=== PATIENT | female | born 1990 | race Caucasian/White ===

== ENCOUNTER 2018-10-08 18:19 | Observation (INO) ==
[2018-10-08] MEDS ORDERED: IOPAMIDOL 100 ML BOTTLE IV ONE (18:20)
--- NOTE | 2018-10-08 18:42 | Emergency Department Note ---
Neuro HPI - General Chief Complaint: Stroke Symptoms Stated Complaint: right sided weakness, headache, fall earlier Time Seen by Provider: 10/08/18 18:25 Source: patient Mode of arrival: ambulatory Limitations: no limitations - History of Present Illness HPI Narrative: This 28-year-old female comes emergency room describing tripping over her crutches which she is using because of her right ankle problem. Her right ankle is in an Aircast. She has had previous surgeries there. When she fell she fell backwards and ended up hitting the top left side of her head against a cupboard and the left lower side of her back. Over some period of time she developed right sided weakness particularly of her right upper extremity and right side of her face becoming droopier difficult to control including her eye as well as a decrease in the amount of sensation to these areas. She reports there was no loss of consciousness. She thinks this happened a couple of hours ago but she seems frustrated in trying to talk or explain. 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 She sees a Dr. Chuck Reza, neurologist, [facility]. REVIEW OF SYSTEMS: Her speech is difficult to understand and she is struggling to explain herself. Obtaining review of systems is not possible at this time. - Related Data Home Medications: Home Medications Medication Instructions Recorded Confirmed Gabapentin [Neurontin] 900 mg PO QIDP 12/24/15 03/04/17 Beclomethasone Dipropionate [Qvar 1 puff INH PRN PRN 03/08/16 03/04/17 40] Albuterol Sulfate [Ventolin] 2 puff INH Q4HP PRN 04/27/16 03/04/17 Previous Rx's Medication Instructions Recorded Cyclobenzaprine HCl 10 mg PO Q6HP PRN #10 tablet 08/16/16 Erythromycin Ophth Oint [Ilotycin 1 ribbon OU QID #1 oint.ophth 11/20/17 Ophth Oint] oxyCODONE HCL [Oxycodone HCl] 5 mg PO Q6H PRN #10 tab 11/20/17 Meclizine [Antivert] 25 mg PO TIDP PRN #20 tab 11/22/17 Metoclopramide [Reglan] 5 mg PO TIDAC PRN #15 tab 11/22/17 Ondansetron [Zofran ODT] 4 mg SL Q4-6HP PRN #14 tab 01/16/18 Sulfamethoxazole/Trimethoprim 1 tab PO BID #20 tab 01/16/18 [Bactrim Ds] Phenytoin Sod [Dilantin] 300 mg PO HS #30 cap 01/26/18 Clindamycin HCl [Cleocin] 300 mg PO TID #30 cap 06/06/18 HYDROcodone/APAP 5/325MG [[place] 1 tab PO Q4HP PRN #10 tab 06/06/18 5-325Mg] Ondansetron [Zofran ODT] 4 mg SL Q4-6HP PRN #10 tab 06/06/18 Gabapentin [Neurontin] 300 mg PO BID #21 cap 06/08/18 Ondansetron [Zofran ODT] 4 mg SL Q4-6HP PRN #10 tab 06/08/18 Allergies/Adverse Reactions: Allergies Allergy/AdvReac Type Severity Reaction Status Date / Time penicillin G [PENICILLIN G] Allergy Severe HIVES AND Verified 10/08/18 18:23 THROAT SWELLED UP phenobarbital [PHENOBARBITAL] Allergy Severe 'THROAT Verified 10/08/18 18:23 SWOLLEN' NSAIDS (Non-Steroidal Allergy Mild Vomiting Verified 10/08/18 18:23 Anti-Inflamma acetaminophen [From Tylenol] AdvReac Intermediate Vomiting Verified 10/08/18 18:23 ibuprofen AdvReac Unknown Verified 10/08/18 18:23 promethazine [From Phenergan] AdvReac Unknown Unknown Verified 10/08/18 18:23 ketorolac [From Toradol] AdvReac Nausea Verified 10/08/18 18:23 Past Medical History - Past Medical History [facility] Narrative: Medical History (Last Updated 10/08/18 @ 20:02 by Micky Payne DO) Acute CVA (cerebrovascular accident) (Resolved) Headache, hemiplegic migraine (Resolved) Chronic right hip pain (Chronic) Right ankle pain (Chronic) Seizure (Resolved) Abdominal pain (Resolved) Acute chest wall pain (Resolved) Atypical chest pain (Resolved) Cervical strain (Resolved) Chest pain (Resolved) Closed head injury (Resolved) Constipation (Resolved) Costalchondritis (Resolved) Dehydration (Resolved) Fall (Resolved) Flank pain (Resolved) Headache (Resolved) Lumbago (Resolved) Migraine (Resolved) Migraine headache with aura (Resolved) Nausea & vomiting (Resolved) Nausea, vomiting, and diarrhea (Resolved) Ovarian cyst rupture (Resolved) Paresthesias/numbness (Resolved) Sinusitis (Resolved) Strain of lumbar region (Resolved) Thoracic back pain (Resolved) Upper respiratory infection (Resolved) Urinary tract infection (Resolved) Vasovagal syncope (Resolved) Vertigo (Resolved) Vomiting (Resolved) Morbid obesity Medical history: Reports: arthritis, asthma, fibromyalgia, migraine, other (Right hip labral tear, chronic cervical pain, history of obesity, chronic back pain) Psychiatric history: Reports: anxiety, depression 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 She hardly moves. When spoken to she speaks very softly and quiet such that it is difficult to hear her. Upon repetition and request she sometimes elevates her voice on.) Head: atraumatic, normocephalic Eye: Present: normal appearance, PERRL, EOMI. Absent: scleral icterus, conjunctival injection ENT: normal oropharynx, mucous membranes moist, other (She does not open her mouth very far. Unable to see well her uvula or tonsillar area.) Neck: Present: trachea midline. Absent: lymphadenopathy, thyromegaly Chest: Present: symmetric chest wall rise Abdominal: Present: soft. Absent: distention, tenderness, guarding, rebound, rigidity, organomegaly, mass Extremities: Present: other (Lateral gel brace on the right ankle per). Absent: pedal edema, pretibial edema, calf tenderness Patient oriented to: Present: person Speech: Present: slurred, dysarthria Cranial nerves: EOM function (II, III, IV, ): Normal (But right eye is 4/5 closed virtually all the time. She seldom will look up.), facial sensation (V): Abnormal Right (Decreased on the right subjectively.), facial palsy (VII): Abnormal Right (Seems somewhat thick and decrease in movement.), tongue deviation (XII): Normal Motor strength - LUE: 3/5 Motor strength - RUE: 1/5 (On moving around her right upper extremity there is at times some tension in the shoulder and elbow muscles. Allowing her hand and forearm to fall towards her face initially causes fairly flaccid response then there was some tension and seemed to resist elbow extension briefly.) Motor strength - LLE: 3/5 Motor strength - RLE: 2/5 (Wiggles the right foot toes some but up and down a little bit [id number] with less strength than the right.) Sensory exam upper extremity: Abnormal Right: light touch (Subjectively decreased compared to the left.) Sensory exam lower extremity: Abnormal Right: light touch (Decreased compared to the left) Coma Scale Eye Opening: To Voice Coma Scale Motor Response: Obeys Commands Coma Scale Verbal Response: Oriented Coma Scale Total: 14 Psychiatric: Present: flat affect, serious, poor eye contact, other (Seems frustrated when she is trying to talk and having troubles remembering or finding her words per). Absent: agitated, anxious Skin: Present: warm, dry Course Vital Signs Pulse Rate 116 H 10/08/18 19:31 Respiratory Rate 17 10/08/18 19:31 Blood Pressure 137/103 10/08/18 19:31 Pulse Oximetry (%) 100 10/08/18 19:31 Pulse Rate 116 H 10/08/18 19:31 Respiratory Rate 21 10/08/18 19:41 Blood Pressure 140/124 10/08/18 19:41 Pulse Oximetry (%) 100 10/08/18 19:31 Neuro Symptoms/Deficit - MDM Narrative Medical decision making narrative: 28-year-old with an interesting history of TPA for CVA; hemiplegic migraines; unable to express herself well enough to tell even when onset today was of symptoms after a head injury.. CT scan of her head will be ordered emergently. Code stroke labs to be ordered as well. CT scan read as negative except for sinusitis. I spoke with stroke neurologist Dr. Haywood who agrees to videoscope in to help in evaluating this patient. 7:15 PM - patient's care passed off to Dr. Collin French who is coming on evening shift. Code stroke neurologist is yet to call back and be on the videoscope. - Lab Data Result diagrams: 10/08/18 18:39 10/08/18 18:39 Lab Results 10/08/18 10/08/18 Range/Units 18:39 18:39 POC Hct 36.0 (36.0-48.0) % POC PT 11.2 L (11.9-14.5) sec POC INR 0.9 (0.9-1.2) POC Sodium 141 (133-145) mmol/L POC Potassium 4.1 (3.3-5.1) mmol/L POC Chloride 104 (96-108) mmol/L POC Total CO2 26 (22-30) mmol/L POC BUN 12 (6-20) mg/dl POC Creatinine 1.0 (0.6-1.1) mg/dl POC Glucose 96 (70-105) mg/dL POC WB Ioniz Calcium 1.16 (1.16-1.32) mmol/L Disposition Pt seen by BUFFING MACHINE OPERATOR SEMIAUTOMATIC/PA only: No Disposition: Still a Patient Condition: Undetermined Referrals: Samia Dawkins ARNP [Primary Care Provider] -
[2018-10-08 18:51] LABS: POC Blood Urea Nitrogen 12 mg/dl (6-20); POC CO2 26 mmol/L (22-30); POC Calcium, Ionized 1.16 mmol/L (1.16-1.32); POC Chloride 104 mmol/L (96-108); POC Glucose, Random 96 mg/dL (70-105); POC Potassium 4.1 mmol/L (3.3-5.1); POC Sodium 141 mmol/L (133-145)
--- NOTE | 2018-10-08 19:06 | Cat Scan Report ---
History: Acute stroke symptoms with right-sided weakness, headaches and recent fall TECHNIQUE: The brain was imaged without contrast at 2.5 mm intervals. The radiation exposure was limited using dose reduction technology. FINDINGS: The brain appears normally developed. There is no evidence of an infarct, hemorrhage, edema or mass effect. The ventricles and cisterns are normal. There is near complete opacification of the right frontal sinus. Partial bilateral ethmoidectomies have been performed. There is moderate nodular mucosal thickening along the wall of the right ethmoid fossa. Minor mucosal thickening is seen in the floor the sphenoid sinuses. The left side ethmoids are relatively clear. The left frontal sinus is clear. The mastoids are also clear. Comparison with the prior exam done on 01/26/18 shows no change in appearance of the brain. The right frontal sinusitis and postsurgical changes in the ethmoids are new. IMPRESSION: Anatomically normal brain Severe right frontal and moderate right ethmoid sinusitis Dr. Payne was called with the results Interpreted and Authenticated by: Barry Brandt 10/08/18
[2018-10-08] MEDS ORDERED: diphenhydrAMINE 50 MG/ML VIAL IV ONE (19:39)
[2018-10-08] MEDS ORDERED: 0.9 % SODIUM CHLORIDE 1,000 ML IV ONE (19:39)
[2018-10-08] MEDS ORDERED: METOCLOPRAMIDE 10 MG/2 ML VIAL IV ONE (19:39)
[2018-10-08] MEDS ORDERED: DEXAMETHASONE 10 MG/ML VIAL IV ONE (19:39)
[2018-10-08 19:43] LABS: POC INR 0.9 (0.9-1.2); POC Pro Time 11.2 sec (11.9-14.5)
[2018-10-08] MEDS: HYDROmorphone 2 MG/ML VIAL IV PRN ×3 (19:45→23:30)
[2018-10-08 19:55] LABS: Basophils # (Auto) 0 K/mcL (0.0-0.3); Basophils % (Auto) 0.5 % (0.0-2.0); Eosinophils # (Auto) 0.6 K/mcL (0.0-0.7); Eosinophils % (Auto) 5.9 % (0.0-7.0); Granulocytes % (Auto) 60.1 % (38.0-78.0); Hematocrit 36.2 % (36.0-48.0); Hemoglobin 11.9 g/dL (12.0-15.0); Lymphocytes # (Auto) 2.6 K/mcL (1.5-4.8); Lymphocytes % (Auto) 27.1 % (15.5-49.0); Mean Cell Volume 80.6 fL (80.0-100.0); Mean Corpuscular HGB Conc 32.9 g/dL (31.0-36.0); Monocytes # (Auto) 0.6 K/mcL (0.1-0.9); Monocytes % (Auto) 6.4 % (1.0-12.0); Platelet Count 363 K/mcL (140-440); RBC 4.49 M/mcL (4.00-5.20); Red Cell Distribution Width 14.4 % (11.5-14.5); WBC 9.4 K/mcL (4.5-11.0)
[2018-10-08 20:19] LABS: ALT/SGPT 14 U/l (0-40); AST/SGOT 12 U/l (0-37); Albumin/Globulin Ratio 1.3 (1.0-2.3); Alkaline Phosphatase 97 U/L (39-117); Bilirubin,Total < 0.2 mg/dL (0.0-1.0); Blood Urea Nitrogen 12 mg/dl (6-20); Calcium 9.1 mg/dl (8.6-10.4); Carbon Dioxide 24 mmol/L (22-30); Chloride 105 mmol/L (96-108); Globulin 3.1 gm/dL (2.2-3.7); Glomerular Filtration Rate 76; Glucose 92 mg/dL (70-105); Potassium 4.3 mmol/L (3.3-5.1); Sodium 142 mmol/L (133-145)
[2018-10-08] MEDS ORDERED: cefTRIAXone 2 GM in DEXTROSE 5% IN WATER 50 ML IV ONE (20:50)
--- NOTE | 2018-10-08 20:52 | Emergency Department Note ---
Neuro HPI - General Chief Complaint: Stroke Symptoms Stated Complaint: right sided weakness, headache, fall earlier Time Seen by Provider: 10/08/18 18:25 Source: patient Mode of arrival: ambulatory Limitations: no limitations - History of Present Illness HPI Narrative: I received this patient in checkout from Dr. Payne. He had initiated stroke work-up and called tele-stroke Dr. Wilson Patient continues to have severe headache, right-sided facial droop and right arm weakness - Related Data Home Medications: Home Medications Medication Instructions Recorded Confirmed Gabapentin [Neurontin] 900 mg PO QIDP 12/24/15 03/04/17 Beclomethasone Dipropionate [Qvar 1 puff INH PRN PRN 03/08/16 03/04/17 40] Albuterol Sulfate [Ventolin] 2 puff INH Q4HP PRN 04/27/16 03/04/17 traMADol [Ultram] 50 mg PO DAILY PRN 10/09/18 10/09/18 Previous Rx's Medication Instructions Recorded Cyclobenzaprine HCl 10 mg PO Q6HP PRN #10 tablet 08/16/16 Meclizine [Antivert] 25 mg PO TIDP PRN #20 tab 11/22/17 Ondansetron [Zofran ODT] 4 mg SL Q4-6HP PRN #14 tab 01/16/18 Gabapentin [Neurontin] 300 mg PO BID #21 cap 06/08/18 Allergies/Adverse Reactions: Allergies Allergy/AdvReac Type Severity Reaction Status Date / Time penicillin G [PENICILLIN G] Allergy Severe HIVES AND Verified 10/08/18 18:23 THROAT SWELLED UP phenobarbital [PHENOBARBITAL] Allergy Severe 'THROAT Verified 10/08/18 18:23 SWOLLEN' acetaminophen [From Tylenol] AdvReac Mild Vomiting Verified 10/09/18 06:07 ketorolac [From Toradol] AdvReac Mild Nausea Verified 10/09/18 06:07 NSAIDS (Non-Steroidal AdvReac Mild Vomiting Verified 10/09/18 06:07 Anti-Inflamma promethazine [From Phenergan] AdvReac Mild Twitching Verified 10/09/18 06:07 ibuprofen AdvReac Unknown Verified 10/08/18 18:23 Past Medical History - Past Medical History Medical history: Reports: arthritis, asthma, fibromyalgia, migraine, other (Right hip labral tear, chronic cervical pain, history of obesity, chronic back pain) Psychiatric history: Reports: anxiety, depression 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 She hardly moves. When spoken to she speaks very softly and qu iet such that it is difficult to hear her. Upon repetition and request she sometimes elevates her voice on.) Course Vital Signs Pulse Rate 116 H 10/08/18 19:31 Respiratory Rate 17 10/08/18 19:31 Blood Pressure 137/103 10/08/18 19:31 Pulse Oximetry (%) 100 10/08/18 19:31 Temperature 96.5 F L 10/09/18 07:38 Pulse Rate 114 H 10/09/18 07:38 Respiratory Rate 18 10/09/18 07:38 Blood Pressure 114/70 10/09/18 07:38 Pulse Oximetry (%) 96 10/09/18 07:38 Neuro Symptoms/Deficit - Lab Data Lab results reviewed: Yes I reviewed the patient's lab results. Result diagrams: 10/09/18 01:35 10/09/18 01:35 Lab Results 10/08/18 10/08/18 10/08/18 Range/Units 00:35 00:35 18:39 WBC 9.4 (4.5-11.0) K/mcL RBC 4.49 (4.00-5.20) M/mcL Hgb 11.9 L (12.0-15.0) g/dL Hct 36.2 (36.0-48.0) % POC Hct (36.0-48.0) % MCV 80.6 (80.0-100.0) fL MCH 26.5 (26.0-34.0) pg MCHC 32.9 (31.0-36.0) g/dL RDW 14.4 (11.5-14.5) % Plt Count 363 (140-440) K/mcL MPV 8.0 (7.4-10.4) fL Gran % 60.1 (38.0-78.0) % Lymph % (Auto) 27.1 (15.5-49.0) % [place] % (Auto) 6.4 (1.0-12.0) % Eos % (Auto) 5.9 (0.0-7.0) % Baso % (Auto) 0.5 (0.0-2.0) % Gran # 5.7 (1.8-8.0) K/mcL Lymph # (Auto) 2.6 (1.5-4.8) K/mcL [place] # (Auto) 0.6 (0.1-0.9) K/mcL Eos # (Auto) 0.6 (0.0-0.7) K/mcL Baso # (Auto) 0 (0.0-0.3) K/mcL POC PT (11.9-14.5) sec POC INR (0.9-1.2) APTT (20-37) sec POC Sodium (133-145) mmol/L Sodium (133-145) mmol/L POC Potassium (3.3-5.1) mmol/L Potassium (3.3-5.1) mmol/L POC Chloride (96-108) mmol/L Chloride (96-108) mmol/L Carbon Dioxide (22-30) mmol/L POC Total CO2 (22-30) mmol/L Anion Gap (8-16) POC BUN (6-20) mg/dl BUN (6-20) mg/dl Creatinine (0.6-1.1) mg/dl POC Creatinine (0.6-1.1) mg/dl GFR Calculation Glucose (70-105) mg/dL POC Glucose (70-105) mg/dL Calcium (8.6-10.4) mg/dl POC WB Ioniz Calcium (1.16-1.32) mmol/L Total Bilirubin (0.0-1.0) mg/dL AST (0-37) U/l ALT (0-40) U/l Alkaline Phosphatase (39-117) U/L Troponin T (0-0.03) ng/ml Total Protein (5.9-8.4) gm/dL Albumin (3.2-5.2) gm/dL Globulin (2.2-3.7) gm/dL Albumin/Globulin Ratio (1.0-2.3) Urine Color Yellow Urine Appearance Clear Urine pH 7.0 (5.0-9.0) Ur Specific [place] 1.035 (1.000-1.035) Urine Protein Neg (NEG) mg/dL Urine Glucose (UA) Negative (NEG) mg/dL Urine Ketones Neg (NEG) mg/dL Urine Occult Blood Neg (<0.03) mg/dL Urine Nitrate Neg (NEG) Urine Bilirubin Neg (NEG) mg/dL Urine Urobilinogen Neg (NEG) mg/dL Ur Leukocyte Esterase Neg (NEG) /uL Urine RBC 2 H (0-1) /hpf Urine WBC 1 (0-4) /hpf Ur Squamous Epith Cells < 1 (0-4) /hpf Urine Bacteria 0 (0) /hpf Urine Mucus Few (0) /hpf Ur Culture Indicated? No Urine Opiates Screen Suspect positive A (NONDETECTED) Ur Opiates Confirm Not Reportable Ur Oxycodone Screen None detected (NONDETECTED) Urine Methadone Screen None detected (NONDETECTED) Ur Methadone Confirm Not Reportable Ur Barbiturates Screen None detected (NONDETECTED) Ur Barbiturate Confirm Not Reportable Ur Phencyclidine Scrn None detected (NONDETECTED) Urine PCP Confirm Not Reportable Ur Amphetamines Screen None detected (NONDETECTED) U Amphetamines Confirm Not Reportable U Benzodiazepines Scrn None detected (NONDETECTED) U Benzodiazepine Confm Not Reportable Urine Cocaine Screen None detected (NONDETECTED) Urine Cocaine Confirm Not Reportable U Cannabinoids Confirm Not Reportable U Marijuana (THC) Screen None detected (NONDETECTED) 10/08/18 10/08/18 10/08/18 Range/Units 18:39 18:39 18:39 WBC (4.5-11.0) K/mcL RBC (4.00-5.20) M/mcL Hgb (12.0-15.0) g/dL Hct (36.0-48.0) % POC Hct (36.0-48.0) % MCV (80.0-100.0) fL MCH (26.0-34.0) pg MCHC (31.0-36.0) g/dL RDW (11.5-14.5) % Plt Count (140-440) K/mcL MPV (7.4-10.4) fL Gran % (38.0-78.0) % Lymph % (Auto) (15.5-49.0) % [place] % (Auto) (1.0-12.0) % Eos % (Auto) (0.0-7.0) % Baso % (Auto) (0.0-2.0) % Gran # (1.8-8.0) K/mcL Lymph # (Auto) (1.5-4.8) K/mcL [place] # (Auto) (0.1-0.9) K/mcL Eos # (Auto) (0.0-0.7) K/mcL Baso # (Auto) (0.0-0.3) K/mcL POC PT 11.2 L (11.9-14.5) sec POC INR 0.9 (0.9-1.2) APTT 38 H (20-37) sec POC Sodium (133-145) mmol/L Sodium 142 (133-145) mmol/L POC Potassium (3.3-5.1) mmol/L Potassium 4.3 (3.3-5.1) mmol/L POC Chloride (96-108) mmol/L Chloride 105 (96-108) mmol/L Carbon Dioxide 24 (22-30) mmol/L POC Total CO2 (22-30) mmol/L Anion Gap 13.0 (8-16) POC BUN (6-20) mg/dl BUN 12 (6-20) mg/dl Creatinine 1.0 (0.6-1.1) mg/dl POC Creatinine (0.6-1.1) mg/dl GFR Calculation 76 Glucose 92 (70-105) mg/dL POC Glucose (70-105) mg/dL Calcium 9.1 (8.6-10.4) mg/dl POC WB Ioniz Calcium (1.16-1.32) mmol/L Total Bilirubin < 0.2 (0.0-1.0) mg/dL AST 12 (0-37) U/l ALT 14 (0-40) U/l Alkaline Phosphatase 97 (39-117) U/L Troponin T < 0.01 (0-0.03) ng/ml Total Protein 7.1 (5.9-8.4) gm/dL Albumin 4.0 (3.2-5.2) gm/dL Globulin 3.1 (2.2-3.7) gm/dL Albumin/Globulin Ratio 1.3 (1.0-2.3) Urine Color Urine Appearance Urine pH (5.0-9.0) Ur Specific [place] (1.000-1.035) Urine Protein (NEG) mg/dL Urine Glucose (UA) (NEG) mg/dL Urine Ketones (NEG) mg/dL Urine Occult Blood (<0.03) mg/dL Urine Nitrate (NEG) Urine Bilirubin (NEG) mg/dL Urine Urobilinogen (NEG) mg/dL Ur Leukocyte Esterase (NEG) /uL Urine RBC (0-1) /hpf Urine WBC (0-4) /hpf Ur Squamous Epith Cells (0-4) /hpf Urine Bacteria (0) /hpf Urine Mucus (0) /hpf Ur Culture Indicated? Urine Opiates Screen (NONDETECTED) Ur Opiates Confirm Ur Oxycodone Screen (NONDETECTED) Urine Methadone Screen (NONDETECTED) Ur Methadone Confirm Ur Barbiturates Screen (NONDETECTED) Ur Barbiturate Confirm Ur Phencyclidine Scrn (NONDETECTED) Urine PCP Confirm Ur Amphetamines Screen (NONDETECTED) U Amphetamines Confirm U Benzodiazepines Scrn (NONDETECTED) U Benzodiazepine Confm Urine Cocaine Screen (NONDETECTED) Urine Cocaine Confirm U Cannabinoids Confirm U Marijuana (THC) Screen (NONDETECTED) 10/08/18 Range/Units 18:39 WBC (4.5-11.0) K/mcL RBC (4.00-5.20) M/mcL Hgb (12.0-15.0) g/dL Hct (36.0-48.0) % POC Hct 36.0 (36.0-48.0) % MCV (80.0-100.0) fL MCH (26.0-34.0) pg MCHC (31.0-36.0) g/dL RDW (11.5-14.5) % Plt Count (140-440) K/mcL MPV (7.4-10.4) fL Gran % (38.0-78.0) % Lymph % (Auto) (15.5-49.0) % [place] % (Auto) (1.0-12.0) % Eos % (Auto) (0.0-7.0) % Baso % (Auto) (0.0-2.0) % Gran # (1.8-8.0) K/mcL Lymph # (Auto) (1.5-4.8) K/mcL [place] # (Auto) (0.1-0.9) K/mcL Eos # (Auto) (0.0-0.7) K/mcL Baso # (Auto) (0.0-0.3) K/mcL POC PT (11.9-14.5) sec POC INR (0.9-1.2) APTT (20-37) sec POC Sodium 141 (133-145) mmol/L Sodium (133-145) mmol/L POC Potassium 4.1 (3.3-5.1) mmol/L Potassium (3.3-5.1) mmol/L POC Chloride 104 (96-108) mmol/L Chloride (96-108) mmol/L Carbon Dioxide (22-30) mmol/L POC Total CO2 26 (22-30) mmol/L Anion Gap (8-16) POC BUN 12 (6-20) mg/dl BUN (6-20) mg/dl Creatinine (0.6-1.1) mg/dl POC Creatinine 1.0 (0.6-1.1) mg/dl GFR Calculation Glucose (70-105) mg/dL POC Glucose 96 (70-105) mg/dL Calcium (8.6-10.4) mg/dl POC WB Ioniz Calcium 1.16 (1.16-1.32) mmol/L Total Bilirubin (0.0-1.0) mg/dL AST (0-37) U/l ALT (0-40) U/l Alkaline Phosphatase (39-117) U/L Troponin T (0-0.03) ng/ml Total Protein (5.9-8.4) gm/dL Albumin (3.2-5.2) gm/dL Globulin (2.2-3.7) gm/dL Albumin/Globulin Ratio (1.0-2.3) Urine Color Urine Appearance Urine pH (5.0-9.0) Ur Specific [place] (1.000-1.035) Urine Protein (NEG) mg/dL Urine Glucose (UA) (NEG) mg/dL Urine Ketones (NEG) mg/dL Urine Occult Blood (<0.03) mg/dL Urine Nitrate (NEG) Urine Bilirubin (NEG) mg/dL Urine Urobilinogen (NEG) mg/dL Ur Leukocyte Esterase (NEG) /uL Urine RBC (0-1) /hpf Urine WBC (0-4) /hpf Ur Squamous Epith Cells (0-4) /hpf Urine Bacteria (0) /hpf Urine Mucus (0) /hpf Ur Culture Indicated? Urine Opiates Screen (NONDETECTED) Ur Opiates Confirm Ur Oxycodone Screen (NONDETECTED) Urine Methadone Screen (NONDETECTED) Ur Methadone Confirm Ur Barbiturates Screen (NONDETECTED) Ur Barbiturate Confirm Ur Phencyclidine Scrn (NONDETECTED) Urine PCP Confirm Ur Amphetamines Screen (NONDETECTED) U Amphetamines Confirm U Benzodiazepines Scrn (NONDETECTED) U Benzodiazepine Confm Urine Cocaine Screen (NONDETECTED) Urine Cocaine Confirm U Cannabinoids Confirm U Marijuana (THC) Screen (NONDETECTED) - Radiology Data Radiology results reviewed: Yes I reviewed the patient's radiology results. CT of the head along with CT angiogram of the head and neck do not show acute infarct. However they do note severe frontal and ethmoid sinusitis as well as stigmata of previous sinus surgeries Dr. Wilson also reviewed previous CTs MRI is available to him over at [facility]. He notes that she has a nebulous history of arteriovenous malformation. 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 Wilson, neurologist told stroke. Per review of previous documents she has an AV malformation that precludes giving further TPA. Further is not clear that she is actually having stroke symptoms. We will order CTA of head and neck. CT scan does note severe sinusitis which we will treat with antibiotics. Headache treated as well. CTA was unrevealing except for sinusitis. Concern at this point was conversion disorder versus CVA. Conversion disorder does seem to be more likely at this point given her psychiatric history and evidence so far -exam seems to support this. The headache seems to be from the sinusitis. Sitting the fluids and had not gotten up to urinate so we put a Bansal catheter in-she had over 700 cc in her bladder and was not complaining-Bansal was left in place At this point patient was clearly not moving her right arm well and we needed to sort out whether or not this is actual CVA versus conversion disorder. She needed further imaging including MRI echo and ultrasound of the carotids. I ordered the ultrasound and then discussed the case with Dr. Mcdonough, hospitalist. He agreed to accept the patient for further care and evaluation in the hospital. I have put in holding orders Disposition: Xfer As Outpt/Obs ([facility]) Condition: Fair
[2018-10-08] MEDS ORDERED: CLOPIDOGREL 75 MG TABLET PO ONE (23:18)
[2018-10-08] MEDS ORDERED: ATORVASTATIN 40 MG TABLET PO ONE (23:18)
[2018-10-08] MEDS ORDERED: ONDANSETRON 4 MG/2 ML VIAL IV PRN (23:22)
[2018-10-08] MEDS ORDERED: oxyCODONE/APAP 5/325MG TABLET PO PRN (23:22)
--- NOTE | 2018-10-08 23:34 | Internal Med History&Physical ---
Medical - H&P: [facility] Patient information: Note initiated : 10/08/18 at 11:34 pm Service Date, if different from initiated Date: [] Patient: Mattie Ortiz a 28 y/o F admitted on for right sided weakness, headache, fall earlier. Chief Complaint: [] Chief complaint: right-sided weakness History of present illness: Ms. Ortiz is a 28 year old F with a history of prior CVA symptoms and status post TPA who presents today to the ER after she fell backwards in her kitchen while using her crutches sustaining injury to the back of her head. She did not experience any bleeding or loss of consciousness however 2 hours following the injury patient noted sharp central headache along with increasing right-sided weakness and facial drooping and difficulty speaking. There is no apparent sei zures. She was brought into the ER for further evaluation Initial workup for CVA was unremarkable with negative CT head/CT angiogram head and neck. Stroke neurologist was consulted , as per neurologist TPA is contraindicated given a history of aneurysm and conversion disorder. Neurology recommended admission for further evaluation including MRI brain/echocardiogram for completeness of CVA workup. Patient was started on Plavix and statin in the ER. Subsequently hospitalist service was consulted for admission to facilitate further workup as above At the time of evaluation patient is alert oriented. She appears distraught from her symptoms. She denies thunderclap headache, chest palpitation, tearing neck pain or loss of consciousness. She further denies bowel or urinary incontinence. She also denies cough, fever, photophobia, neck stiffness. She recently sprained her right ankle and currently in a immobilizer Symptoms have minimally improved following an initial NIH score 11. Review of systems 10 point review systems was performed and is negative surveillance discussed above Medical - H&P: PMH Medical history: Acute CVA (cerebrovascular accident) (Resolved) Headache, hemiplegic migraine (Resolved) Chronic right hip pain (Chronic) Right ankle pain (Chronic) Seizure (Resolved) Abdominal pain (Resolved) Acute chest wall pain (Resolved) Atypical chest pain (Resolved) Cervical strain (Resolved) Chest pain (Resolved) Closed head injury (Resolved) Constipation (Resolved) Costalchondritis (Resolved) Dehydration (Resolved) Fall (Resolved) Flank pain (Resolved) Headache (Resolved) Lumbago (Resolved) Migraine (Resolved) Migraine headache with aura (Resolved) Nausea & vomiting (Resolved) Nausea, vomiting, and diarrhea (Resolved) Ovarian cyst rupture (Resolved) Paresthesias/numbness (Resolved) Sinusitis (Resolved) Strain of lumbar region (Resolved) Thoracic back pain (Resolved) Upper respiratory infection (Resolved) Urinary tract infection (Resolved) Vasovagal syncope (Resolved) Vertigo (Resolved) Vomiting (Resolved) Morbid obesity Medical history: Reports: arthritis, asthma, fibromyalgia, migraine, other (Right hip labral tear, chronic cervical pain, history of obesity, chronic back pain) Psychiatric history: Reports: anxiety, depression [employer]IST history: Reports: other (ovarian cyst) Surgical history ED: Reports: non-contributory - Social History smoking status: Never smoker Alcohol use: Reports: None Drug use: Reports: none Social history: lives With her parents Medical - H&P: Meds Home Medications Medication Instructions Recorded Confirmed Type Gabapentin [Neurontin] 900 mg PO QIDP 12/24/15 03/04/17 History Beclomethasone Dipropionate [Qvar 1 puff INH PRN PRN 03/08/16 03/04/17 History 40] Albuterol Sulfate [Ventolin] 2 puff INH Q4HP PRN 04/27/16 03/04/17 History Cyclobenzaprine HCl 10 mg PO Q6HP PRN #10 tablet 08/16/16 03/04/17 Rx Meclizine [Antivert] 25 mg PO TIDP PRN #20 tab 11/22/17 Rx Ondansetron [Zofran ODT] 4 mg SL Q4-6HP PRN #14 tab 01/16/18 Rx Gabapentin [Neurontin] 300 mg PO BID #21 cap 06/08/18 Rx traMADol [Ultram] 50 mg PO DAILY PRN 10/09/18 10/09/18 History Allergies Allergy/AdvReac Type Severity Reaction Status Date / Time penicillin G [PENICILLIN G] Allergy Severe HIVES AND Verified 10/08/18 18:23 THROAT SWELLED UP phenobarbital [PHENOBARBITAL] Allergy Severe 'THROAT Verified 10/08/18 18:23 SWOLLEN' acetaminophen [From Tylenol] AdvReac Mild Vomiting Verified 10/09/18 06:07 ketorolac [From Toradol] AdvReac Mild Nausea Verified 10/09/18 06:07 NSAIDS (Non-Steroidal AdvReac Mild Vomiting Verified 10/09/18 06:07 Anti-Inflamma promethazine [From Phenergan] AdvReac Mild Twitching Verified 10/09/18 06:07 ibuprofen AdvReac Unknown Verified 10/08/18 18:23 Medical - H&P: Exam - Constitutional Vitals: Pulse Resp BP Pulse Ox 113 H 26 H 137/106 97 10/08/18 23:21 10/08/18 23:21 10/08/18 23:21 10/08/18 23:21 General appearance: morbidly obese Exam: Alert and responding commands Head normocephalic Neck no lymphadenopathy Oral cavity dry Eye movements symmetrical, No ear discharge S1 and S2 regular rhythm-on monitoring analyst sinus Symmetric breath sounds bilaterally Abdomen soft nontender pendulous Lower extremity no cyanosis clubbing or joint swelling Skin no suspicious lesion Psych alert cooperative but anxious Neuro right-sided weakness Right-sided facial nerve involvement Mild expressive aphasia Medical - H&P: Reslt - Labs CBC & Chem 7: 10/09/18 01:35 10/09/18 01:35 Labs: Short CBC 10/08/18 Range/Units 18:39 WBC 9.4 (4.5-11.0) K/mcL Hgb 11.9 L (12.0-15.0) g/dL Hct 36.2 (36.0-48.0) % Plt Count 363 (140-440) K/mcL BMP 10/08/18 18:39 Sodium 142 Potassium 4.3 Chloride 105 Carbon Dioxide 24 BUN 12 Creatinine 1.0 Glucose 92 Calcium 9.1 Cardiac Enzymes 10/08/18 Range/Units 18:39 Troponin T < 0.01 (0-0.03) ng/ml Liver Function 10/08/18 Range/Units 18:39 Total Bilirubin < 0.2 (0.0-1.0) mg/dL AST 12 (0-37) U/l ALT 14 (0-40) U/l Alkaline Phosphatase 97 (39-117) U/L Albumin 4.0 (3.2-5.2) gm/dL Medical - H&P: A/P (1) Acute CVA (cerebrovascular accident) Current visit: No Status: Resolved * Acute right hemiparesis-tele stroke neurology -no indication for TPA. Recommend further workup including echocardiogram/MRI brain. High likelihood conversion reaction. Continue Plavix/statin. Await neurology note * History of neuropathy continue gabapentin * Degenerative joint disease with chronic pain continue cyclobenzaprine/tramadol * Prophylaxis heparin * Full code Plan * Observation telemetry admitted * Further workup as per stroke neurology * PT OT [facility]
[2018-10-09] MEDS ORDERED: 0.9 % SODIUM CHLORIDE 1,000 ML IV SCH ×2 (01:22)
[2018-10-09] MEDS ORDERED: ACETAMINOPHEN 1,000 MG/100 ML BOTTLE IV PRN (01:22)
[2018-10-09] MEDS ORDERED: ONDANSETRON 4 MG/2 ML VIAL IV PRN (01:22)
[2018-10-09] MEDS ORDERED: ACETAMINOPHEN 325 MG TABLET PO PRN (01:22)
[2018-10-09] MEDS ORDERED: PROMETHAZINE 25 MG/ML VIAL IV PRN (01:22)
[2018-10-09] MEDS ORDERED: HYDROmorphone 2 MG/ML VIAL ONE (01:58)
[2018-10-09] MEDS: HYDROmorphone 2 MG/ML VIAL IV PRN ×5 (02:05→14:04)
[2018-10-09 02:14] LABS: Hematocrit 36.1 % (36.0-48.0); Hemoglobin 11.9 g/dL (12.0-15.0); Mean Cell Volume 79.9 fL (80.0-100.0); Mean Corpuscular HGB Conc 33.1 g/dL (31.0-36.0); Mean Platelet Volume 7.9 fL (7.4-10.4); Platelet Count 379 K/mcL (140-440); RBC 4.51 M/mcL (4.00-5.20); Red Cell Distribution Width 14.2 % (11.5-14.5); WBC 9.1 K/mcL (4.5-11.0)
[2018-10-09 02:18] LABS: Appearance,Urine CLEAR; Bacteria,Urine 0 /hpf (0); Bilirubin,Urine NEG (NEG); Color,Urine YELLOW; Culture Indicated,Urine NO; Glucose,Urine (UA) NEGATIVE (NEG); Ketones,Urine NEG (NEG); Leukocyte Esterase,Urine NEG /uL (NEG); Mucus,Urine FEW /hpf (0); Nitrate,Urine NEG (NEG); Protein,Urine NEG (NEG); Specific Gravity,Urine 1.035 (1.000-1.035); Urine Blood NEG mg/dL (<0.03); Urine RBC 2 /hpf (0-1); Urine Squamous Epithelial Cell < 1 /hpf (0-4); Urine WBC 1 /hpf (0-4); Urobilinogen,Urine NEG (NEG)
[2018-10-09 02:23] LABS: Amphetamine Screen,Urine NONE DETECTED (NONDETECTED); Barbiturate Screen,Urine NONE DETECTED (NONDETECTED); Benzodiazepines Screen,Urine NONE DETECTED (NONDETECTED); Cannabinoid Screen,Urine NONE DETECTED (NONDETECTED); Cocaine Screen,Urine NONE DETECTED (NONDETECTED); Oxycodone, Urine Screen NONE DETECTED (NONDETECTED); Phencyclidine Screen,Urine NONE DETECTED (NONDETECTED)
[2018-10-09 02:42] LABS: ALT/SGPT 15 U/l (0-40); AST/SGOT 13 U/l (0-37); Albumin/Globulin Ratio 1.2 (1.0-2.3); Alkaline Phosphatase 95 U/L (39-117); Bilirubin,Direct < 0.2 mg/dL (0.0-0.3); Bilirubin,Total < 0.2 mg/dL (0.0-1.0); Blood Urea Nitrogen 12 mg/dl (6-20); Calcium 8.9 mg/dl (8.6-10.4); Carbon Dioxide 21 mmol/L (22-30); Chloride 104 mmol/L (96-108); Gamma Glutamyl Transpeptidase 41 U/L (5-36); Globulin 3.3 gm/dL (2.2-3.7); Glomerular Filtration Rate 99; Glucose 150 mg/dL (70-105); Lactate Dehydrogenase 138 U/L (94-250); Magnesium 1.8 mg/dL (1.6-2.5); Phosphorous 2.2 mg/dL (2.7-4.5); Potassium 4.3 mmol/L (3.3-5.1); Sodium 139 mmol/L (133-145); Triglycerides 32 mg/dl (<150); Uric Acid 5.7 mg/dL (2.5-8.0)
[2018-10-09 03:31] LABS: Opiate Screen,Urine SUSPECT POSITIVE (NONDETECTED)
[2018-10-09 04:19] LABS: Band Neutrophils % 1 % (0-10); Lymphocytes % 13 % (15-49); Microcytosis 1+ (NONE SEEN); Monocytes % (Manual) 1 % (1-12); Platelet Estimate NORMAL (NORMAL); RBC Morphology ABNORM (NORMAL); Segmented Neutrophils % 85 % (38-78)
[2018-10-09] MEDS: 0.9 % SODIUM CHLORIDE 10 ML SYRINGE IV SCH ×2 (06:33→14:22)
--- NOTE | 2018-10-09 07:56 | Cat Scan Report ---
History: Acute stroke symptoms, headache and facial weakness TECHNIQUE: Following injection of intravenous nonionic contrast the patient was imaged from the aortic arch to the top of the head. Neck and head were imaged separately. Sagittal, coronal and curved linear reformatted views were created. Radiation exposure was limited using dose reduction technology. FINDINGS: The aortic arch and great vessels arising from the aorta are normal in caliber. The carotid arteries are normal and symmetric. There is no plaque formation or dissection. The vertebral arteries are also normal and symmetric. There is no soft tissue neck mass. There are several reactive lymph nodes in both sides of the neck. Salivary glands appear normal. Head: The intracranial arterial circulation is normal. The [place] is normal. There is no evidence of vascular occlusion, thrombosis, dissection, aneurysm or vascular malformation. No enhancing lesion is present. Normal circulation seen both above and below the tentorium. The brain parenchyma appears normal. There is mucus retention cyst in the floor of the left maxillary sinus. Right frontal sinus is nearly completely opacified. Patient has had prior partial ethmoidectomies performed and there is moderate nodular mucosal thickening along the wall of the right ethmoid fossa. IMPRESSION: Normal arterial circulation in the brain and neck Sinusitis Interpreted and Authenticated by: Barry Brandt 10/09/18
--- NOTE | 2018-10-09 08:02 | Cat Scan Report ---
This report was dictated in conjunction with the neck CTA. Please see the neck CT report. IMPRESSION: normal exam Interpreted and Authenticated by: Barry Brandt 10/09/18
--- NOTE | 2018-10-09 08:22 | Ultrasound Report ---
CLINICAL INFORMATION: Right facial droop COMPARISON: Neck CT angiogram on 10/08/18 TECHNIQUE: Carotid arteries were imaged in sagittal and transverse planes using 5 mHz linear probe: Doppler, color, and 2D. FINDINGS: See worksheet by the technologist for velocities in PACS Please correlate with CTA CT Angiography or MRA MR Angiography if surgery is contemplated. The carotid arteries are normal in caliber. There is no plaque formation, dissection, stenosis or vascular anomaly. Normal flow velocities are present in the common, internal and external carotids. There is antegrade flow in both vertebral arteries. IMPRESSION: Normal exam Interpreted and Authenticated by: Barry Brandt 10/09/18
[2018-10-09] MEDS ORDERED: LORazepam 2 MG/ML VIAL IV ONE (08:48)
[2018-10-09] MEDS ORDERED: DOCUSATE SODIUM 100 MG CAPSULE PO SCH (09:00)
[2018-10-09] MEDS ORDERED: MULTIVIT,THER IRON,CA,FA & MIN 1 TABLET PO SCH (09:00)
[2018-10-09] MEDS ORDERED: THIAMINE 100 MG TABLET PO SCH (09:00)
--- NOTE | 2018-10-09 10:55 | Ultrasound Report ---
History: Flank pain The liver and spleen are normal in size and homogeneous. Only segments of the pancreas were visualized due to overlying bowel gas and patient body habitus. The visualized portions of the pancreas are normal. The gallbladder is normal with no stones or thickening of the wall. The common bile duct measures up to 4 mm. The right kidney measures 5.1 x 5.6 x 9.7 cm and is normal. There is no kidney stone or hydronephrosis. Left kidney measures 4.4 x 5.4 x 9.7 cm. The upper pole of the left kidney is somewhat difficult to visualize due to body habitus but the visualized portions of the left kidney are normal, without evidence of a stone, mass, hydronephrosis or inflammation. Segments of the aorta and inferior vena cava are visualized and appear normal. There are other segments which are obscured. No mass or abnormal fluid collection are identified. IMPRESSION: Normal exam Interpreted and Authenticated by: Barry Brandt 10/09/18
--- NOTE | 2018-10-09 11:06 | Magnetic Resonance Report ---
CLINICAL INFORMATION: Stroke symptoms with right-sided weakness and facial droop COMPARISON: Head CT on 10/08/18 TECHNIQUE:Sagittal T1 FLAIR, axial T1 FLAIR, T2 FLAIR propeller, T2 propeller, gradient, diffusion, ADC and coronal T2 weighted images were acquired. FINDINGS: The brain appears normal without evidence hemorrhage, infarct, mass, demyelinating disease or developmental anomaly. The ventricles and cisterns are normal. No abnormal extra-axial fluid collection is present. There is persistent severe right frontal sinusitis and milder right ethmoid sinusitis. Comparison with the head CT done yesterday shows no significant change. IMPRESSION: Normal brain Interpreted and Authenticated by: Barry Brandt 10/09/18
--- NOTE | 2018-10-09 11:12 | Internal Med Progress Note ---
Medical - PN: Subj Patient information: Note initiated : 10/09/18 at 11:10 am Service Date, if different from initiated Date: [] Patient: Mattie Ortiz a 28 y/o F admitted on 10/09/18 for right sided weakness, headache, fall earlier. Chief Complaint: [] Interval history: Ms. Ortiz is a 28 year old F with a history of prior CVA symptoms and status post TPA who presents today to the ER after she fell backwards in her kitchen while using her crutches sustaining injury to the back of her head. She did not experience any bleeding or loss of consciousness however 2 hours following the injury patient noted sharp central headache along with increasing right-sided weakness and facial drooping and difficulty speaking. There is no apparent seizures. She was brought into the ER for further evaluation Initial workup for CVA was unremarkable with negative CT head/CT angiogram head and neck. Stroke neurologist was consulted , as per neurologist TPA is contraindicated given a history of aneurysm and conversion disorder. Neurology recommended admission for further evaluation including MRI brain/echocardiogram for completeness of CVA workup. Patient was started on Plavix and statin in the ER. Subsequently hospitalist service was consulted for admission to facilitate further workup as above At the time of evaluation patient is alert oriented. She appears distraught from her symptoms. She denies thunderclap headache, chest palpitation, tearing neck pain or loss of consciousness. She further denies bowel or urinary incontinence. She also denies cough, fever, photophobia, neck stiffness. She recently sprained her right ankle and currently in a immobilizer Symptoms have minimally improved following an initial NIH score 11. 5/29- clinically improving right-sided weakness, dysarthria, facial droop and headache. MRI brain/echo pending. Continue statin/Plavix. Reviewed neurology note from telemetry stroke evaluation. Cardiology recommendation that he be a candidate due to similar event/conversion disorder in the past. Also AV malformation contraindications to TPA. - Constitutional Vitals: Vital Signs Temp Pulse Resp BP Pulse Ox 96.5 F L 114 H 18 114/70 96 10/09/18 07:38 10/09/18 08:00 10/09/18 08:00 10/09/18 07:38 10/09/18 08:00 Period Temp Pulse Resp BP Sys/Juarez Pulse Ox Last 24 Hr 96.5 F-98.6 F 110-122 13-36 108-193/42-180 90-100 Intake and Output 10/08/18 10/09/18 10/09/18 21:59 05:59 13:59 Intake Total 1050 1000 Output Total 1050 200 Balance 1050 -50 -200 Weight 271 lb 271 lb Intake & Output: Intake & Output 10/08/18 10/09/18 10/09/18 21:59 05:59 13:59 Intake Total 1050 1000 Output Total 1050 200 Balance 1050 -50 -200 Weight 271 lb 271 lb Intake: IV 1050 1000 Sodium Chloride 0.9% 1,000 ml @ 1000 1000 Wide Open IV BOLUS LEA Rx#: [id number] Rocephin 2 gm In Dextrose 5% in 50 Water 50 ml @ 100 mls/hr IV ONCE ONE Rx#:[id number] Output: Urine Catheter Amount 1050 200 Other: Urine Appearance Clear Clear Uretheral (Bansal) Clear Clear Urine Color Dark Yellow Bright Yellow Uretheral (Bansal) Dark Yellow Dark Yellow Urine Odor Normal General appearance: cooperative, no acute distress Exam: Alert and oriented Nonlabored breathing no dysarthria or a fascia Improved strength in upper and lower extremity with improved facial droop Medical - PN: Obj Da - Labs CBC & Chem 7: 10/09/18 01:35 10/09/18 01:35 Labs: Abnormal Lab Results 10/09/18 10/09/18 10/09/18 01:35 01:35 01:35 Hgb 11.9 L MCV 79.9 L Seg Neutrophils % 85 H Lymphocytes % 13 L RBC Morphology Abnorm A Microcytosis 1+ A ESR POC PT APTT Carbon Dioxide 21 L Glucose 150 H Phosphorus 2.2 L GGT 41 H C-Reactive Protein 2.7 H Urine RBC Urine Opiates Screen 10/09/18 10/08/18 10/08/18 01:35 18:39 18:39 Hgb 11.9 L MCV Seg Neutrophils % Lymphocytes % RBC Morphology Microcytosis ESR 42 H POC PT 11.2 L APTT 38 H Carbon Dioxide Glucose Phosphorus GGT C-Reactive Protein Urine RBC Urine Opiates Screen 10/08/18 10/08/18 00:35 00:35 Hgb MCV Seg Neutrophils % Lymphocytes % RBC Morphology Microcytosis ESR POC PT APTT Carbon Dioxide Glucose Phosphorus GGT C-Reactive Protein Urine RBC 2 H Urine Opiates Screen Suspect positive A Meds: Medications Docusate Sodium (Colace) 100 mg PO BID [facility] Hydromorphone HCl (Dilaudid) 0 mg IV Q4HP PRN PRN Reason: PAIN LEVEL > 6 Last Admin: 10/09/18 09:25 Dose: 0.25 mg Documented by: Sodium Chloride (Sodium Chloride 0.9%) 1,000 mls @ 50 mls/hr IV .Q20H [facility] Stop: 10/11/18 13:21 Last Admin: 10/09/18 03:06 Dose: 50 mls/hr Documented by: Sodium Chloride (Sodium Chloride 0.9%) 1,000 mls @ 0 mls/hr IV BOLUS [facility] Last Infusion: 10/09/18 03:07 Dose: Infused Documented by: Iron Carb/Multivit/[place]/Folic Acid (Multivitamin W/Minerals) 1 tab PO DAILY [facility] Ondansetron HCl (Zofran) 4 mg IV Q4-6HP PRN PRN Reason: Nausea And Vomiting Last Admin: 10/09/18 02:37 Dose: 4 mg Documented by: Promethazine HCl (Phenergan) 6.25 mg IV Q4-6HP PRN PRN Reason: Nausea And Vomiting Senna/Docusate Sodium (Senna Plus Tablet) 1 tab PO HS [facility] Sodium Chloride (Saline Flush) 10 ml IV Q8 [facility] Last Admin: 10/09/18 06:33 Dose: 10 ml Documented by: Thiamine HCl (Vitamin B1) 100 mg PO DAILY [facility] Medical - PN: A/P - Time Spent With Patient Total time spent is greater than 50% in coordination of care (as documented) at patient's floor/unit and/or counseling patient: 15 - 24 minutes (1) Acute CVA (cerebrovascular accident) Status: Resolved Assessment and plan: * Acute right hemiparesis- TPA contraindicated for neurology. Awaiting echo cardiogram/MRI brain. High likelihood conversion reaction. Continue Plavix/statin. * Headache much improved. * History of neuropathy continue gabapentin * Degenerative joint disease with chronic pain continue cyclobenzaprine/tramadol * Prophylaxis heparin * Full code Plan * Await echo/MRI * Further workup as per stroke neurology * PT OT ST eval Current Visit: No Medical - PN: Qual - Stroke Onset of Symptoms Date: 10/08/18 Onset of Symptoms Time: 17:00 Symptom Onset Unknown: Yes - VTE Deep Vein Thrombosis/Pulmonary Embolism Present on Admission: No
[2018-10-09] MEDS ORDERED: traMADol 50 MG TABLET PO PRN (13:26)
[2018-10-09] MEDS ORDERED: cefTRIAXone 1 GM VIAL IV SCH (13:30)
--- NOTE | 2018-10-09 14:58 | Discharge Summary ---
Medical - DS: Prov Patient information: Note initiated : 10/09/18 at 2:53 pm Service Date, if different from initiated Date: [] Patient: Mattie Ortiz a 28 y/o F admitted on 10/09/18 for right sided weakness, headache, fall earlier. Chief Complaint: [] Date of admission: 10/09/18 00:57 Discharge date: 10/09/18 Primary care physician: Samia Dawkins Consults: 10/08/18 Consult to Physician [CONS] Stat Comment: Consulting Provider: Eliecer Mcdonough Reason For Exam: Physician to Consult Medical - DS: Meds - Discharge Medications Active and Home Medications: Home Medications Gabapentin [Neurontin] 900 mg PO QID@,,,12/24/15 [History Confirmed 10/09/18 Last Taken Unknown] Beclomethasone Dipropionate [Qvar 40] 1 puff INH PRN PRN 03/08/16 [History Confirmed 03/04/17 Last Taken 10/08/18] Albuterol Sulfate [Ventolin] 2 puff INH Q4HP PRN 04/27/16 [History Confirmed 03/04/17 Last Taken 10/06/18] QUEtiapine FUMARATE [Seroquel] 50 - 150 mg PO HSP PRN 10/09/18 [History Confirmed 10/09/18 Last Taken Unknown] hydrOXYzine [Atarax] 25 mg PO HS 10/09/18 [History Confirmed 10/09/18 Last Taken Unknown] traMADol [Ultram] 50 - 100 mg PO DAILYP PRN 10/09/18 [History Confirmed 10/09/18 Last Taken Unknown] Medical - DS: Hosp Hospital course: Discharge diagnoses * Conversion reaction -rapid resolution of symptoms after initial symptoms mimicking acute right hemiparesis with facial droop- TPA contraindicated per neurology. MRI brain no acute process. Likely precipitated by his psy chosocial stressors in life * Frontal and ethmoidal sinusitis with headache- no leukocytosis. On antibiotic coverage. Patient will follow up with ENT Dr Hudson as outpatient on discharge. ENT prescribed seven-day course of antibiotics which patient will picker and packer from pharmacy. * History of neuropathy continue gabapentin * Degenerative joint disease with chronic pain continue cyclobenzaprine/tramadol Brief hospital course Ms. Ortiz is a 28 year old F with a history of prior CVA symptoms and status post TPA who presents today to the ER after she fell backwards in her kitchen while using her crutches sustaining injury to the back of her head. She did not experience any bleeding or loss of consciousness however 2 hours following the injury patient noted sharp central headache along with increasing right-sided weakness and facial drooping and difficulty speaking. There is no apparent seizures. She was brought into the ER for further evaluation Initial workup for CVA was unremarkable with negative CT head/CT angiogram head and neck. Stroke neurologist was consulted , as per neurologist TPA is contraindicated given a history of aneurysm and conversion disorder. Neurology recommended admission for further evaluation including MRI brain/echocardiogram for completeness of CVA workup. Patient was started on Plavix and statin in the ER. Subsequently hospitalist service was consulted for admission to facilitate further workup as above At the time of evaluation patient is alert oriented. She appears distraught from her symptoms. She denies thunderclap headache, chest palpitation, tearing neck pain or loss of consciousness. She further denies bowel or urinary incontinence. She also denies cough, fever, photophobia, neck stiffness. She recently sprained her right ankle and currently in a immobilizer Symptoms have minimally improved following an initial NIH score 11. 10/09- clinically improving right-sided weakness, dysarthria, facial droop and headache. MRI brain/echo pending. Continue statin/Plavix. Reviewed neurology note from telemetry stroke evaluation. She is not a candidate for TPA candidate due to similar event/conversion disorder in the past. Also AV malformation contraindications to TPA. 10/09- 2:50 PM- MRI no evidence of acute process. Patient was found to be texturing on phone using both hands by nursing staff. During my visit patient's symptoms have nearly resolved dramatically. Her facial droop has dramatically resolved. Patient discharged and advised to follow up with ENT and PICC prescription for sinusitis prescribed by ENT. Patient to follow-up with PCP. Discharge instructions as below Discharge diagnosis: . - Time Spent with Patient Total time spent providing and/or coordinating discharge services: Greater than 30 minutes Medical - DS: Exam - Constitutional Vitals: Vital Signs Temp Pulse Pulse Resp BP BP BP 10/09/18 14:21 99.3 F H 10/09/18 12:45 99.3 F H 115 H 16 10/09/18 08:00 114 H 18 10/09/18 07:38 96.5 F L 114 H 18 114/70 10/09/18 04:22 98 F 115 H 14 153/79 10/09/18 01:21 98.6 F 113 H 32 H 132/66 10/09/18 00:41 112 H 36 H 121/42 10/09/18 00:20 113 H 18 125/87 10/09/18 00:01 116 H 32 H 128/65 10/08/18 23:41 111 H 13 123/84 10/08/18 23:21 113 H 26 H 137/106 10/08/18 23:00 122 H 30 H 125/86 10/08/18 22:40 118 H 25 H 123/86 10/08/18 22:20 114 H 17 120/81 10/08/18 22:00 116 H 20 108/94 10/08/18 21:40 118 H 29 H 119/75 10/08/18 21:20 116 H 22 132/92 10/08/18 21:04 118 H 23 H 128/98 10/08/18 21:02 32 H 182/150 10/08/18 20:41 117 H 22 193/180 10/08/18 20:21 112 H 25 H 181/150 10/08/18 20:01 110 H 20 165/147 10/08/18 19:41 21 140/124 10/08/18 19:31 116 H 17 137/103 BP Pulse Ox 10/09/18 14:21 10/09/18 12:45 103/73 96 10/09/18 08:00 96 10/09/18 07:38 96 10/09/18 04:22 97 10/09/18 01:21 95 10/09/18 00:41 96 10/09/18 00:20 96 10/09/18 00:01 94 10/08/18 23:41 90 10/08/18 23:21 97 10/08/18 23:00 97 10/08/18 22:40 95 10/08/18 22:20 96 10/08/18 22:00 95 10/08/18 21:40 96 10/08/18 21:20 94 10/08/18 21:04 96 10/08/18 21:02 10/08/18 20:41 97 10/08/18 20:21 96 10/08/18 20:01 100 10/08/18 19:41 10/08/18 19:31 100 Intake and Output 10/09/18 10/09/18 10/09/18 05:59 13:59 21:59 Intake Total 1000 Output Total 1050 900 Balance -50 -900 Intake: IV 1000 Sodium Chloride 0.9% 1,000 ml @ 1000 Wide Open IV BOLUS LEA Rx#: [id number] Output: Urine Catheter Amount 1050 900 Other: Urine Appearance Clear Clear Uretheral (Bansal) Clear Clear Urine Color Dark Yellow Bright Yellow Uretheral (Bansal) Dark Yellow Dark Yellow Urine Odor Normal Weight 271 lb Medical - DS: Data Labs on day of discharge: Labs from last 24 hours 10/09/18 10/09/18 10/09/18 01:35 01:35 01:35 WBC 9.1 RBC 4.51 Hgb 11.9 L Hct 36.1 POC Hct MCV 79.9 L MCH 26.4 MCHC 33.1 RDW 14.2 Plt Count 379 MPV 7.9 Gran % Lymph % (Auto) [place] % (Auto) Eos % (Auto) Baso % (Auto) Gran # Lymph # (Auto) [place] # (Auto) Eos # (Auto) Baso # (Auto) Total Counted 100 Seg Neutrophils % 85 H Band Neutrophils % 1 Lymphocytes % 13 L Monocytes % (Manual) 1 Platelet Estimate Normal RBC Morphology Abnorm A Microcytosis 1+ A ESR POC PT POC INR APTT POC Sodium Sodium 139 POC Potassium Potassium 4.3 POC Chloride Chloride 104 Carbon Dioxide 21 L POC Total CO2 Anion Gap 14.0 POC BUN BUN 12 Creatinine 0.8 POC Creatinine GFR Calculation 99 Glucose 150 H POC Glucose Uric Acid 5.7 Calcium 8.9 POC WB Ioniz Calcium Phosphorus 2.2 L Magnesium 1.8 Total Bilirubin < 0.2 Direct Bilirubin < 0.2 GGT 41 H AST 13 ALT 15 Alkaline Phosphatase 95 Lactate Dehydrogenase 138 Troponin T C-Reactive Protein Total Protein 7.3 Albumin 4.0 Globulin 3.3 Albumin/Globulin Ratio 1.2 Triglycerides 32 Procalcitonin < 0.05 Urine Color Urine Appearance Urine pH Ur Specific [place] Urine Protein Urine Glucose (UA) Urine Ketones Urine Occult Blood Urine Nitrate Urine Bilirubin Urine Urobilinogen Ur Leukocyte Esterase Urine RBC Urine WBC Ur Squamous Epith Cells Urine Bacteria Urine Mucus Ur Culture Indicated? Urine Opiates Screen Ur Opiates Confirm Ur Oxycodone Screen Urine Methadone Screen Ur Methadone Confirm Ur Barbiturates Screen Ur Barbiturate Confirm Ur Phencyclidine Scrn Urine PCP Confirm Ur Amphetamines Screen U Amphetamines Confirm U Benzodiazepines Scrn U Benzodiazepine Confm Urine Cocaine Screen Urine Cocaine Confirm U Cannabinoids Confirm U Marijuana (THC) Screen 10/09/18 10/09/18 10/08/18 01:35 01:35 18:39 WBC RBC Hgb Hct POC Hct 36.0 MCV MCH MCHC RDW Plt Count MPV Gran % Lymph % (Auto) [place] % (Auto) Eos % (Auto) Baso % (Auto) Gran # Lymph # (Auto) [place] # (Auto) Eos # (Auto) Baso # (Auto) Total Counted Seg Neutrophils % Band Neutrophils % Lymphocytes % Monocytes % (Manual) Platelet Estimate RBC Morphology Microcytosis ESR 42 H POC PT POC INR APTT POC Sodium 141 Sodium POC Potassium 4.1 Potassium POC Chloride 104 Chloride Carbon Dioxide POC Total CO2 26 Anion Gap POC BUN 12 BUN Creatinine POC Creatinine 1.0 GFR Calculation Glucose POC Glucose 96 Uric Acid Calcium POC WB Ioniz Calcium 1.16 Phosphorus Magnesium Total Bilirubin Direct Bilirubin GGT AST ALT Alkaline Phosphatase Lactate Dehydrogenase Troponin T C-Reactive Protein 2.7 H Total Protein Albumin Globulin Albumin/Globulin Ratio Triglycerides Procalcitonin Urine Color Urine Appearance Urine pH Ur Specific [place] Urine Protein Urine Glucose (UA) Urine Ketones Urine Occult Blood Urine Nitrate Urine Bilirubin Urine Urobilinogen Ur Leukocyte Esterase Urine RBC Urine WBC Ur Squamous Epith Cells Urine Bacteria Urine Mucus Ur Culture Indicated? Urine Opiates Screen Ur Opiates Confirm Ur Oxycodone Screen Urine Methadone Screen Ur Methadone Confirm Ur Barbiturates Screen Ur Barbiturate Confirm Ur Phencyclidine Scrn Urine PCP Confirm Ur Amphetamines Screen U Amphetamines Confirm U Benzodiazepines Scrn U Benzodiazepine Confm Urine Cocaine Screen Urine Cocaine Confirm U Cannabinoids Confirm U Marijuana (THC) Screen 10/08/18 10/08/18 10/08/18 18:39 18:39 18:39 WBC RBC Hgb Hct POC Hct MCV MCH MCHC RDW Plt Count MPV Gran % Lymph % (Auto) [place] % (Auto) Eos % (Auto) Baso % (Auto) Gran # Lymph # (Auto) [place] # (Auto) Eos # (Auto) Baso # (Auto) Total Counted Seg Neutrophils % Band Neutrophils % Lymphocytes % Monocytes % (Manual) Platelet Estimate RBC Morphology Microcytosis ESR POC PT 11.2 L POC INR 0.9 APTT 38 H POC Sodium Sodium 142 POC Potassium Potassium 4.3 POC Chloride Chloride 105 Carbon Dioxide 24 POC Total CO2 Anion Gap 13.0 POC BUN BUN 12 Creatinine 1.0 POC Creatinine GFR Calculation 76 Glucose 92 POC Glucose Uric Acid Calcium 9.1 POC WB Ioniz Calcium Phosphorus Magnesium Total Bilirubin < 0.2 Direct Bilirubin GGT AST 12 ALT 14 Alkaline Phosphatase 97 Lactate Dehydrogenase Troponin T < 0.01 C-Reactive Protein Total Protein 7.1 Albumin 4.0 Globulin 3.1 Albumin/Globulin Ratio 1.3 Triglycerides Procalcitonin Urine Color Urine Appearance Urine pH Ur Specific [place] Urine Protein Urine Glucose (UA) Urine Ketones Urine Occult Blood Urine Nitrate Urine Bilirubin Urine Urobilinogen Ur Leukocyte Esterase Urine RBC Urine WBC Ur Squamous Epith Cells Urine Bacteria Urine Mucus Ur Culture Indicated? Urine Opiates Screen Ur Opiates Confirm Ur Oxycodone Screen Urine Methadone Screen Ur Methadone Confirm Ur Barbiturates Screen Ur Barbiturate Confirm Ur Phencyclidine Scrn Urine PCP Confirm Ur Amphetamines Screen U Amphetamines Confirm U Benzodiazepines Scrn U Benzodiazepine Confm Urine Cocaine Screen Urine Cocaine Confirm U Cannabinoids Confirm U Marijuana (THC) Screen 10/08/18 10/08/18 10/08/18 18:39 00:35 00:35 WBC 9.4 RBC 4.49 Hgb 11.9 L Hct 36.2 POC Hct MCV 80.6 MCH 26.5 MCHC 32.9 RDW 14.4 Plt Count 363 MPV 8.0 Gran % 60.1 Lymph % (Auto) 27.1 [place] % (Auto) 6.4 Eos % (Auto) 5.9 Baso % (Auto) 0.5 Gran # 5.7 Lymph # (Auto) 2.6 [place] # (Auto) 0.6 Eos # (Auto) 0.6 Baso # (Auto) 0 Total Counted Seg Neutrophils % Band Neutrophils % Lymphocytes % Monocytes % (Manual) Platelet Estimate RBC Morphology Microcytosis ESR POC PT POC INR APTT POC Sodium Sodium POC Potassium Potassium POC Chloride Chloride Carbon Dioxide POC Total CO2 Anion Gap POC BUN BUN Creatinine POC Creatinine GFR Calculation Glucose POC Glucose Uric Acid Calcium POC WB Ioniz Calcium Phosphorus Magnesium Total Bilirubin Direct Bilirubin GGT AST ALT Alkaline Phosphatase Lactate Dehydrogenase Troponin T C-Reactive Protein Total Protein Albumin Globulin Albumin/Globulin Ratio Triglycerides Procalcitonin Urine Color Yellow Urine Appearance Clear Urine pH 7.0 Ur Specific [place] 1.035 Urine Protein Neg Urine Glucose (UA) Negative Urine Ketones Neg Urine Occult Blood Neg Urine Nitrate Neg Urine Bilirubin Neg Urine Urobilinogen Neg Ur Leukocyte Esterase Neg Urine RBC 2 H Urine WBC 1 Ur Squamous Epith Cells < 1 Urine Bacteria 0 Urine Mucus Few Ur Culture Indicated? No Urine Opiates Screen Suspect positive A Ur Opiates Confirm Not Reportable Ur Oxycodone Screen None detected Urine Methadone Screen None detected Ur Methadone Confirm Not Reportable Ur Barbiturates Screen None detected Ur Barbiturate Confirm Not Reportable Ur Phencyclidine Scrn None detected Urine PCP Confirm Not Reportable Ur Amphetamines Screen None detected U Amphetamines Confirm Not Reportable U Benzodiazepines Scrn None detected U Benzodiazepine Confm Not Reportable Urine Cocaine Screen None detected Urine Cocaine Confirm Not Reportable U Cannabinoids Confirm Not Reportable U Marijuana (THC) Screen None detected Medical - DS: A/P - Patient/Caregiver Discharge Instructions Activity: increase activity as tolerated Diet: Regular Diet Additional Instructions: Refrain from alcohol and smoking Continue antibiotics for sinusitis as per ENT. Please picker and packer prescriptions from pharmacy Return to ER if concerning neurological symptoms noted in future - Problem Maintenance (1) Acute CVA (cerebrovascular accident) Status: Resolved - Follow up Plan Follow up with: Samia Dawkins ARNP [Primary Care Provider] - Disposition: Home, Self-Care Prognosis: Fair Rehab Potential: Fair I certify that the patient requires SNF services: No Overall status at discharge: patient is progressing back to baseline Medical - DS: Qual - VTE Deep Vein Thrombosis/Pulmonary Embolism Present on Admission: No
[2018-10-09] MEDS ORDERED: GABAPENTIN 100 MG CAPSULE PO SCH (18:00)
[2018-10-09] MEDS ORDERED: hydrOXYzine 25 MG TABLET PO SCH (21:00)
[2018-10-09] MEDS ORDERED: QUEtiapine 25 MG TABLET PO PRN (21:00)
[2018-10-09] MEDS ORDERED: SENNOSIDES/DOCUSATE SODIUM 1 TAB TABLET PO SCH (21:00)
[2018-10-13 10:33] LABS: Opiate Confirmation POSITIVE (N)
== END 2018-10-09 16:15 | disposition home or self-care (01) ==
LOC: ED 18:19 → INTOOBSV 10-09 00:57 → MEDSUR 10-09 00:57
PROVIDERS: ADMIT Internal Medicine; ATTEND Internal Medicine

== ENCOUNTER 2018-10-14 15:55 | Inpatient (IN) ==
[2018-10-14] MEDS ORDERED: IOPAMIDOL 100 ML BOTTLE IV ONE (15:56)
[2018-10-14] MEDS ORDERED: ACETAMINOPHEN 325 MG TABLET PO ONE (16:06)
[2018-10-14] MEDS ORDERED: LACTATED RINGERS 1,000 ML IV ONE (16:07)
--- NOTE | 2018-10-14 16:16 | Emergency Department Note ---
URI/Sore Throat HPI - General Chief Complaint: Weakness Stated Complaint: fever, weakness, headache Time Seen by Provider: 10/14/18 16:01 Source: EMS Mode of arrival: EMS - History of Present Illness HPI Narrative: This 28-year-old female comes the emergency room with very weak extremities, fever, sharp pain on the top of her head. She was treated last week for sinusitis. She woke up this morning with very sharp stabbing pain in her throat particularly on the right. She reports she has been taking her antibiotics which have been clindamycin and Bactrim and has not missed any except this morning's because it was too painful; I believe she is on about day 6. She feels extremely sick and weak and has felt cold. She reports that she has a history of allergy or reaction to NSAIDs and Tylenol including 8 days straight of vomiting. Her throat is so sore it hurts to breathe. She reports passing out because of this. She has tried lozenges as well as spray to try to help her throat but it has not been that helpful. She has had some chills. No sweats. No fevers that she is measured at home. Previous sinus surgery by Dr. Hudson was in August of this year. REVIEW OF SYSTEMS: Some mild blurred vision with occasional streakiness. Hurts to breathe No shortness of breath Some nausea. No vomiting or diarrhea Some dysuria. Some generalized achiness all over and muscle achiness today as well as back pain. Some lightheaded. - Related Data Home Medications Medication Instructions Recorded Confirmed Gabapentin [Neurontin] 900 mg PO QID@08,12,18,12/24/15 10/09/18 Beclomethasone Dipropionate [Qvar 1 puff INH PRN PRN 03/08/16 03/04/17 40] Albuterol Sulfate [Ventolin] 2 puff INH Q4HP PRN 04/27/16 03/04/17 QUEtiapine FUMARATE [Seroquel] 50 - 150 mg PO HSP PRN 10/09/18 10/09/18 hydrOXYzine [Atarax] 25 mg PO HS 10/09/18 10/09/18 traMADol [Ultram] 50 - 100 mg PO DAILYP PRN 10/09/18 10/09/18 Allergies Allergy/AdvReac Type Severity Reaction Status Date / Time penicillin G [PENICILLIN G] Allergy Severe HIVES AND Verified 10/14/18 15:59 THROAT SWELLED UP phenobarbital [PHENOBARBITAL] Allergy Severe 'THROAT Verified 10/14/18 15:59 SWOLLEN' acetaminophen [From Tylenol] AdvReac Mild Vomiting Verified 10/14/18 15:59 ketorolac [From Toradol] AdvReac Mild Nausea Verified 10/14/18 15:59 NSAIDS (Non-Steroidal AdvReac Mild Vomiting Verified 10/14/18 15:59 Anti-Inflamma promethazine [From Phenergan] AdvReac Mild Twitching Verified 10/14/18 15:59 ibuprofen AdvReac Unknown Verified 10/14/18 15:59 URI PMH - Past Medical History [facility] Narrative: Medical History (Last Updated 10/08/18 @ 20:05 by Micky Payne DO) Morbid obesity (Chronic) Acute CVA (cerebrovascular accident) (Resolved) Headache, hemiplegic migraine (Resolved) Chronic right hip pain (Chronic) Right ankle pain (Chronic) Seizure (Resolved) Abdominal pain (Resolved) Acute chest wall pain (Resolved) Atypical chest pain (Resolved) Cervical strain (Resolved) Chest pain (Resolved) Closed head injury (Resolved) Constipation (Resolved) Costalchondritis (Resolved) Dehydration (Resolved) Fall (Resolved) Flank pain (Resolved) Headache (Resolved) Lumbago (Resolved) Migraine (Resolved) Migraine headache with aura (Resolved) Nausea & vomiting (Resolved) Nausea, vomiting, and diarrhea (Resolved) Ovarian cyst rupture (Resolved) Paresthesias/numbness (Resolved) Sinusitis (Resolved) Strain of lumbar region (Resolved) Thoracic back pain (Resolved) Upper respiratory infection (Resolved) Urinary tract infection (Resolved) Vasovagal syncope (Resolved) Vertigo (Resolved) Vomiting (Resolved) Past Surgical History (Last Updated 10/14/18 @ 20:26 by Micky Payne DO) S/P sinus surgery (Acute ~08/2018) Medical history: Reports: arthritis, asthma, fibromyalgia, migraine, other (Right hip labral tear, chronic cervical pain, history of obesity, chronic back pain) Psychiatric history: Reports: anxiety, depression [place] [employer] history: Reports: other (ovarian cyst) Family history: Reports: other (history of migraines on her grandmother and grandfather's side.) - Social History smoking status: Current some day smoker Alcohol use: Reports: None Drug use: Reports: none Physical Exam Limitations: physical limitation (Too weak to move much at all) General appearance: alert, in distress (Some panting breathing but some of this seems more functional.), malaise (Moderate to severe), obese Head: atraumatic, normocephalic, other (Mildly asymmetric facial expressions.) Eye: Present: EOMI ENT: mucous membranes moist, other (Difficult to visualize but on the right tonsillar area has an orange-red bleb measuring 1-1.5 cm. Airway does not appear to be obstructed.) Neck: Present: trachea midline, lymphadenopathy (Moderate with quite a bit of tenderness in the right upper anterior chain area.). Absent: thyromegaly Chest: Present: symmetric chest wall rise Respiratory: Present: normal lung sounds bilaterally. Absent: respiratory distress, wheezes, stridor, accessory muscle use, prolonged expiratory phase Cardiovascular: Present: regular rate, tachycardia. Absent: systolic murmur, diastolic murmur Abdominal: Present: soft, tenderness (Mild intermittent subjective tenderness in various areas but not consistent.). Absent: distention, guarding, rebound, rigidity, organomegaly, mass Extremities: Absent: pedal edema, pretibial edema, calf tenderness Back: Absent: CVA tenderness (R), CVA tenderness (L), spinous process tenderness Neurological: Present: alert, oriented X3 Psychiatric: Present: anxious, flat affect, serious. Absent: agitated, poor eye contact Skin: Present: warm, diaphoretic (Slightly or mildly in some areas) Course Vital Signs Temperature 102.4 F H 10/14/18 15:55 Pulse Rate 144 H 10/14/18 15:55 Respiratory Rate 30 H 10/14/18 15:55 Blood Pressure 125/98 10/14/18 15:55 Pulse Oximetry (%) 100 10/14/18 15:55 Temperature 103.5 F H 10/14/18 19:01 Pulse Rate 125 H 10/14/18 19:01 Respiratory Rate 22 10/14/18 19:01 Blood Pressure 126/101 10/14/18 19:01 Pulse Oximetry (%) 97 10/14/18 19:01 Upper Respiratory Infection - MDM Narrative Medical decision making narrative: 5:03 PM - significant tachycardia and fever in a new sore throat while being on clindamycin and Bactrim. We will do labs and possibly imaging. 6:30 PM - attempts to lower herTemperature have included ice and IV which are only partially successful. We will continue. 6:45 PM approximately - complaining of significant pain and discomfort. Orders for hydromorphone and ondansetron given. 7:57 PM - Case discussed with Dr. Ortega, ENT, who agrees that she should be a dmitted and placed on a different IV antibiotic and he will consult and consider likelihood of needing to drain the abscess of her right tonsillar area. 8:10 PM - is feeling significantly improved. Heart rate is come down to the 120s. Remains with elevated temperature. Will add additional ice packs. 8:18 PM - I spoke with Dr. Edwards, hospitalist, who kindly accepts this patient for general care with Dr. Ortega consulting. Discussion of different antibiotics. Cefuroxime is not available IV. Conclusion to go with meropenem 1 g now and clindamycin 900 mg IV now. - Medical Records Medical records reviewed: Yes I reviewed the patient's medical records. - Lab Data Lab results reviewed: Yes I reviewed the patient's lab results. Result diagrams: 10/14/18 16:13 10/14/18 16:12 Lab Results 10/14/18 10/14/18 10/14/18 Range/Units 16:12 16:13 16:13 WBC 18.1 H (4.5-11.0) K/mcL RBC 4.63 (4.00-5.20) M/mcL Hgb 12.0 (12.0-15.0) g/dL Hct 37.1 (36.0-48.0) % MCV 80.2 (80.0-100.0) fL MCH 26.0 (26.0-34.0) pg MCHC 32.4 (31.0-36.0) g/dL RDW 14.1 (11.5-14.5) % Plt Count 363 (140-440) K/mcL MPV 7.8 (7.4-10.4) fL Gran % 90.7 H (38.0-78.0) % Lymph % (Auto) 4.9 L (15.5-49.0) % [place] % (Auto) 3.3 (1.0-12.0) % Eos % (Auto) 0.6 (0.0-7.0) % Baso % (Auto) 0.5 (0.0-2.0) % Gran # 16.4 H (1.8-8.0) K/mcL Lymph # (Auto) 0.9 L (1.5-4.8) K/mcL [place] # (Auto) 0.6 (0.1-0.9) K/mcL Eos # (Auto) 0.1 (0.0-0.7) K/mcL Baso # (Auto) 0.1 (0.0-0.3) K/mcL VBG Lactic Acid 2.8 H (0.5-2.0) mmol/L Sodium 135 (133-145) mmol/L Potassium 4.0 (3.3-5.1) mmol/L Chloride 99 (96-108) mmol/L Carbon Dioxide 19 L (22-30) mmol/L Anion Gap 17.0 H (8-16) BUN 8 (6-20) mg/dl Creatinine 1.0 (0.6-1.1) mg/dl GFR Calculation 76 Glucose 105 (70-105) mg/dL Calcium 9.2 (8.6-10.4) mg/dl Total Bilirubin 0.3 (0.0-1.0) mg/dL AST 13 (0-37) U/l ALT 17 (0-40) U/l Alkaline Phosphatase 98 (39-117) U/L C-Reactive Protein 4.4 H (0.0-0.8) mg/dl Total Protein 7.6 (5.9-8.4) gm/dL Albumin 4.2 (3.2-5.2) gm/dL Globulin 3.4 (2.2-3.7) gm/dL Albumin/Globulin Ratio 1.2 (1.0-2.3) Urine Color Urine Appearance Urine pH (5.0-9.0) Ur Specific [place] (1.000-1.035) Urine Protein (NEG) mg/dL Urine Glucose (UA) (NEG) mg/dL Urine Ketones (NEG) mg/dL Urine Occult Blood (<0.03) mg/dL Urine Nitrate (NEG) Urine Bilirubin (NEG) mg/dL Urine Urobilinogen (NEG) mg/dL Ur Leukocyte Esterase (NEG) /uL Urine RBC (0-1) /hpf Urine WBC (0-4) /hpf Ur Squamous Epith Cells (0-4) /hpf Calcium Carbonate Cryst (0) /hpf Urine Bacteria (0) /hpf Urine Mucus (0) /hpf Ur Culture Indicated? 10/14/18 Range/Units 17:31 WBC (4.5-11.0) K/mcL RBC (4.00-5.20) M/mcL Hgb (12.0-15.0) g/dL Hct (36.0-48.0) % MCV (80.0-100.0) fL MCH (26.0-34.0) pg MCHC (31.0-36.0) g/dL RDW (11.5-14.5) % Plt Count (140-440) K/mcL MPV (7.4-10.4) fL Gran % (38.0-78.0) % Lymph % (Auto) (15.5-49.0) % [place] % (Auto) (1.0-12.0) % Eos % (Auto) (0.0-7.0) % Baso % (Auto) (0.0-2.0) % Gran # (1.8-8.0) K/mcL Lymph # (Auto) (1.5-4.8) K/mcL [place] # (Auto) (0.1-0.9) K/mcL Eos # (Auto) (0.0-0.7) K/mcL Baso # (Auto) (0.0-0.3) K/mcL VBG Lactic Acid (0.5-2.0) mmol/L Sodium (133-145) mmol/L Potassium (3.3-5.1) mmol/L Chloride (96-108) mmol/L Carbon Dioxide (22-30) mmol/L Anion Gap (8-16) BUN (6-20) mg/dl Creatinine (0.6-1.1) mg/dl GFR Calculation Glucose (70-105) mg/dL Calcium (8.6-10.4) mg/dl Total Bilirubin (0.0-1.0) mg/dL AST (0-37) U/l ALT (0-40) U/l Alkaline Phosphatase (39-117) U/L C-Reactive Protein (0.0-0.8) mg/dl Total Protein (5.9-8.4) gm/dL Albumin (3.2-5.2) gm/dL Globulin (2.2-3.7) gm/dL Albumin/Globulin Ratio (1.0-2.3) Urine Color Yellow Urine Appearance Clear Urine pH 9.0 (5.0-9.0) Ur Specific [place] 1.014 (1.000-1.035) Urine Protein 30 A (NEG) mg/dL Urine Glucose (UA) Negative (NEG) mg/dL Urine Ketones Neg (NEG) mg/dL Urine Occult Blood Neg (<0.03) mg/dL Urine Nitrate Neg (NEG) Urine Bilirubin Neg (NEG) mg/dL Urine Urobilinogen Neg (NEG) mg/dL Ur Leukocyte Esterase Neg (NEG) /uL Urine RBC 4 H (0-1) /hpf Urine WBC < 1 (0-4) /hpf Ur Squamous Epith Cells < 1 (0-4) /hpf Calcium Carbonate Cryst Few A (0) /hpf Urine Bacteria 0 (0) /hpf Urine Mucus Few (0) /hpf Ur Culture Indicated? No - Radiology Data Radiology results reviewed: Yes I reviewed the patient's radiology results. 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 See above. Disposition: Xfer As Inpt ([facility]) Condition: Fair Referrals: Samia Dawkins ARNP [Primary Care Provider] -
[2018-10-14 16:36] LABS: Basophils # (Auto) 0.1 K/mcL (0.0-0.3); Basophils % (Auto) 0.5 % (0.0-2.0); Eosinophils # (Auto) 0.1 K/mcL (0.0-0.7); Eosinophils % (Auto) 0.6 % (0.0-7.0); Granulocytes % (Auto) 90.7 % (38.0-78.0); Hematocrit 37.1 % (36.0-48.0); Lymphocytes # (Auto) 0.9 K/mcL (1.5-4.8); Lymphocytes % (Auto) 4.9 % (15.5-49.0); Mean Cell Volume 80.2 fL (80.0-100.0); Mean Corpuscular HGB Conc 32.4 g/dL (31.0-36.0); Mean Platelet Volume 7.8 fL (7.4-10.4); Monocytes # (Auto) 0.6 K/mcL (0.1-0.9); Monocytes % (Auto) 3.3 % (1.0-12.0); Platelet Count 363 K/mcL (140-440); RBC 4.63 M/mcL (4.00-5.20); Red Cell Distribution Width 14.1 % (11.5-14.5); WBC 18.1 K/mcL (4.5-11.0)
[2018-10-14] MEDS ORDERED: cefTRIAXone 1 GM VIAL IV ONE (16:49)
[2018-10-14] MEDS ORDERED: cefTRIAXone 500 MG in DEXTROSE 5% IN WATER 50 ML IV ONE (16:50)
[2018-10-14 16:54] LABS: ALT/SGPT 17 U/l (0-40); AST/SGOT 13 U/l (0-37); Albumin 4.2 gm/dL (3.2-5.2); Albumin/Globulin Ratio 1.2 (1.0-2.3); Alkaline Phosphatase 98 U/L (39-117); Bilirubin,Total 0.3 mg/dL (0.0-1.0); Blood Urea Nitrogen 8 mg/dl (6-20); C-Reactive Protein 4.4 mg/dl (0.0-0.8); Calcium 9.2 mg/dl (8.6-10.4); Carbon Dioxide 19 mmol/L (22-30); Chloride 99 mmol/L (96-108); Globulin 3.4 gm/dL (2.2-3.7); Glomerular Filtration Rate 76; Glucose 105 mg/dL (70-105); Sodium 135 mmol/L (133-145)
[2018-10-14] MEDS ORDERED: cefTRIAXone 250 MG VIAL ONE (16:55)
[2018-10-14] MEDS ORDERED: ONDANSETRON 4 MG/2 ML VIAL IV ONE (18:00)
[2018-10-14] MEDS: HYDROmorphone 2 MG/ML VIAL IV PRN ×5 (18:09→23:12)
[2018-10-14 18:20] LABS: Appearance,Urine CLEAR; Bacteria,Urine 0 /hpf (0); Bilirubin,Urine NEG (NEG); Calcium Carbonate Crystals,Ur FEW /hpf (0); Color,Urine YELLOW; Culture Indicated,Urine NO; Glucose,Urine (UA) NEGATIVE (NEG); Ketones,Urine NEG (NEG); Leukocyte Esterase,Urine NEG /uL (NEG); Mucus,Urine FEW /hpf (0); Nitrate,Urine NEG (NEG); Protein,Urine 30 mg/dL (NEG); Specific Gravity,Urine 1.014 (1.000-1.035); Urine Blood NEG mg/dL (<0.03); Urine RBC 4 /hpf (0-1); Urine Squamous Epithelial Cell < 1 /hpf (0-4); Urine WBC < 1 /hpf (0-4); Urobilinogen,Urine NEG (NEG)
--- NOTE | 2018-10-14 19:03 | Cat Scan Report ---
CLINICAL INFORMATION: History of sinus surgery. Throat swelling and pain COMPARISON: 10/08/2018 CT TECHNIQUE: 80 cc of Isovue-300 were injected intravenously and 25 seconds later, 2.5 mm helical slices were obtained from the inferior orbit through the supraclavicular region. Following reconstruction, 2.5 mm sagittal and coronal reformations were processed. The exam was reviewed at bone and soft tissue windows . The exam was performed using radiation dose optimization techniques including, but not limited to, automated exposure control, adjustment of the mA and/or kV according to patient size and use of iterative reconstruction technique. FINDINGS: Both palatine tonsils are moderately enlarged and inhomogeneously enhancing compatible with palatine tonsillitis. There appears to be a 2 cm abscess within the anterior portion of the right tonsil. The enlarged tonsils moderately narrow the oropharyngeal airway. Mildly enlarged reactive the cervical lymph nodes, in the adjacent carotid and jugular regions, are new. The submandibular and parotid glands are normal and symmetric in size, configuration and attenuation. The carotid and jugular vasculature systems are normal. True and false vocal cords, epiglottis, aryepiglottic folds and tongue base are normal. 19 mm nodule in the inferior right thyroid lobe is unchanged from previous studies. Lung apices are normal. Subtotal opacification of the right frontal sinus and posterior right ethmoid air cell are unchanged. Two small polyps left maxillary sinus noted. Extensive sinus surgery seen as before. Cervical spine is anatomically aligned without evidence of disc extrusion or protrusion IMPRESSION: 1. Severe bilateral palatine tonsillitis resulting in moderate narrowing of the oropharyngeal airway. Small abscess developing in the anterior right palatine tonsil. Mildly enlarged reactive adenopathy in the cervical region - as expected 2. Severe right frontal and posterior right ethmoid sinusitis unchanged. Interpreted and Authenticated by: Kiran De Paz 10/14/18
[2018-10-14] MEDS ORDERED: 0.9 % SODIUM CHLORIDE 1,000 ML IV ONE (19:23)
[2018-10-14] MEDS ORDERED: MEROPENEM 1 GM in 0.9 % SODIUM CHLORIDE 50 ML IV STA (20:30)
[2018-10-14] MEDS ORDERED: VANCOMYCIN 2,000 MG in 0.9 % SODIUM CHLORIDE 500 ML IV ONE (20:32)
[2018-10-14] MEDS ORDERED: CLINDAMYCIN 900 MG in DEXTROSE 5% IN WATER 50 ML IV ONE (20:34)
--- NOTE | 2018-10-14 21:21 | Internal Med History&Physical ---
Medical - H&P: HPI Patient information: Note initiated : 10/14/18 at 9:17 pm Service Date, if different from initiated Date: [] Patient: Mattie Ortiz a 28 y/o F admitted on for fever, weakness, headache. Chief Complaint: [] History of present illness: Ms. Ortiz is a 28 year old F Presents the ED with severe sore throat headache fever chills. Patient states she went to bed last night feeling fine and this morning woke up with sore throat which describes his shards of glass from throat she has a worsening headache which is sharp top of her head she had fevers and chills she is made comfort become severely weak. In the ER she was worked up and found to have a severe peritonsillar cellulitis with abscess developing on the right with moderate narrowing of the airway. Her airway is not compromised and there is no appearance of impending compromise. She states that hurts to swallow anything even her spit. Vital signs normal to hypertensive blood pressure with tachycardia and fever of 103 and tachypnea. She is given aggressive IV fluid and pain management in the ED with improvement in her symptoms. Says her pain is worse on the right side of her throat. She has no neck stiffness. She does have a history of chronic sinusitis and is recently been on antibiotics including oral clindamycin and Bactrim and she says she is been taking those as scheduled. In the ED she ice packs were used for cooling because of the fact she has severe allergy to NSAIDs and Tylenol. He had a recent sinus surgery by Dr. martino in August which patient says it helped for a while. And also helped with her hea daches. Case discussed with Dr. Ortega who will consult on the case possible drainage of her abscess. Review of Systems: Pertinent positives as above. Denies vomiting/chest or abdominal pain/coug h/dyspnea/diarrhea. 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, Cerebral AV malformation Chronic pain neck and back Neuropathy DJD Chronic tachycardia she states her heart rate runs 90-1 20 normally Morbid obesity Past surgical history: Ovarian cyst right leg surgery sinus surgery right hip labrum repair Family history: States her mother and father both healthy Social history: Smokes cigarettes rarely Drinks alcohol rarely Is at home with her mom Medical - H&P: Meds Home Medications Medication Instructions Recorded Confirmed Type Gabapentin [Neurontin] 900 mg PO QID@08,12,18,12/24/15 10/09/18 History Beclomethasone Dipropionate [Qvar 1 puff INH PRN PRN 03/08/16 03/04/17 History 40] Albuterol Sulfate [Ventolin] 2 puff INH Q4HP PRN 04/27/16 03/04/17 History QUEtiapine FUMARATE [Seroquel] 50 - 150 mg PO HSP PRN 10/09/18 10/09/18 History hydrOXYzine [Atarax] 25 mg PO HS 10/09/18 10/09/18 History traMADol [Ultram] 50 - 100 mg PO DAILYP PRN 10/09/18 10/09/18 History Allergies Allergy/AdvReac Type Severity Reaction Status Date / Time penicillin G [PENICILLIN G] Allergy Severe HIVES AND Verified 10/14/18 15:59 THROAT SWELLED UP phenobarbital [PHENOBARBITAL] Allergy Severe 'THROAT Verified 10/14/18 15:59 SWOLLEN' acetaminophen [From Tylenol] AdvReac Mild Vomiting Verified 10/14/18 15:59 ketorolac [From Toradol] AdvReac Mild Nausea Verified 10/14/18 15:59 NSAIDS (Non-Steroidal AdvReac Mild Vomiting Verified 10/14/18 15:59 Anti-Inflamma promethazine [From Phenergan] AdvReac Mild Twitching Verified 10/14/18 15:59 ibuprofen AdvReac Unknown Verified 10/14/18 15:59 Medical - H&P: Exam - Constitutional Vitals: Temp Pulse Resp BP Pulse Ox 103.8 F H 139 H 23 H 124/71 95 10/14/18 21:01 10/14/18 21:01 10/14/18 21:01 10/14/18 21:01 10/14/18 21:01 Exam: General: Alert, Awake, mild distress from discomfort, obesity Eyes/N/T: EOMI, PEERL, Head/Neck: neck supple, normocephalic atraumatic CV: Tachycardic but regular, No murmurs, normal s1/s2 Pulm: Clear b/l, no wheezing/rhonchi/rales Abd: soft, nontender, +BS x4 Ext: no clubbing/cyanosis/edema Neuro: Alert, no focal deficits, moves all extremities, CN 2-12 grossly intact, symmetrical strength b/l upper/lower, sensations intact b/l upper/lower Skin: warm/dry Medical - H&P: Reslt - Labs CBC & Chem 7: 10/14/18 16:13 10/14/18 16:12 Labs: Short CBC 10/14/18 Range/Units 16:13 WBC 18.1 H (4.5-11.0) K/mcL Hgb 12.0 (12.0-15.0) g/dL Hct 37.1 (36.0-48.0) % Plt Count 363 (140-440) K/mcL BMP 10/14/18 16:12 Sodium 135 Potassium 4.0 Chloride 99 Carbon Dioxide 19 L BUN 8 Creatinine 1.0 Glucose 105 Calcium 9.2 Liver Function 10/14/18 Range/Units 16:12 Total Bilirubin 0.3 (0.0-1.0) mg/dL AST 13 (0-37) U/l ALT 17 (0-40) U/l Alkaline Phosphatase 98 (39-117) U/L Albumin 4.2 (3.2-5.2) gm/dL Urine 10/14/18 Range/Units 17:31 Urine Color Yellow Urine Appearance Clear Urine pH 9.0 (5.0-9.0) Ur Specific [place] 1.014 (1.000-1.035) Urine Protein 30 A (NEG) mg/dL Urine Glucose (UA) Negative (NEG) mg/dL - Impressions CT soft tissue neck with severe bilateral peritonsillitis with developing abscess right Medical - H&P: A/P - Narrative A/P Narrative: A: *Peritonsillitis with abscess on the right: *Sepsis: *Chronic sinusitis: *Chronic tachycardia: Patient states HR runs 90-120 normally *Morbid obesity: *Asthma: *Depression/anxiety/pseudoseizures/fibromyalgia/? 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 Ortega following, likely drainage -Merrem/Vanco, pending Cx's -pain control -Close monitoring of her airway - -ppx: SCD
[2018-10-14] MEDS ORDERED: NALOXONE HCL 0.4 MG/ML VIAL IV PRN (21:53)
[2018-10-14] MEDS ORDERED: diphenhydrAMINE 50 MG/ML VIAL IV PRN (21:53)
[2018-10-14] MEDS ORDERED: DEXAMETHASONE 10 MG/ML VIAL IV ONE (21:53)
[2018-10-14] MEDS ORDERED: VANCOMYCIN PER PHARMACY IV SCH (21:53)
[2018-10-14] MEDS ORDERED: IPRATROPIUM/ALBUTEROL 3 ML AMPUL.NEB NEB PRN (21:53)
[2018-10-14] MEDS ORDERED: METHOCARBAMOL 1,000 MG/10 ML VIAL IV PRN (21:53)
[2018-10-14] MEDS ORDERED: BISACODYL 10 MG SUPP.RECT PR PRN (21:53)
[2018-10-14] MEDS ORDERED: ONDANSETRON 4 MG/2 ML VIAL IV PRN (21:53)
[2018-10-14] MEDS: 0.9 % SODIUM CHLORIDE 1,000 ML IV SCH (23:08)
[2018-10-14] MEDS: 0.9 % SODIUM CHLORIDE 10 ML SYRINGE IV SCH (23:08)
[2018-10-14] MEDS: MEROPENEM 1 GM in 0.9 % SODIUM CHLORIDE 50 ML IV SCH (23:08)
[2018-10-14] MEDS: METOCLOPRAMIDE 10 MG/2 ML VIAL IV SCH (23:50)
[2018-10-15] MEDS: HYDROmorphone 2 MG/ML VIAL IV PRN ×9 (01:05→23:15)
[2018-10-15 05:28] LABS: Basophils # (Auto) 0 K/mcL (0.0-0.3); Basophils % (Auto) 0 % (0.0-2.0); Eosinophils # (Auto) 0 K/mcL (0.0-0.7); Eosinophils % (Auto) 0 % (0.0-7.0); Granulocytes % (Auto) 93.1 % (38.0-78.0); Hematocrit 34.7 % (36.0-48.0); Hemoglobin 11.4 g/dL (12.0-15.0); Lymphocytes # (Auto) 0.6 K/mcL (1.5-4.8); Lymphocytes % (Auto) 3.5 % (15.5-49.0); Mean Cell Volume 80.5 fL (80.0-100.0); Mean Corpuscular HGB Conc 32.9 g/dL (31.0-36.0); Mean Platelet Volume 8.1 fL (7.4-10.4); Monocytes # (Auto) 0.5 K/mcL (0.1-0.9); Monocytes % (Auto) 3.4 % (1.0-12.0); Platelet Count 295 K/mcL (140-440); RBC 4.31 M/mcL (4.00-5.20); Red Cell Distribution Width 14.2 % (11.5-14.5); WBC 15.7 K/mcL (4.5-11.0)
[2018-10-15] MEDS: 0.9 % SODIUM CHLORIDE 10 ML SYRINGE IV SCH ×3 (05:34→23:18)
[2018-10-15] MEDS: METOCLOPRAMIDE 10 MG/2 ML VIAL IV SCH ×4 (05:34→23:16)
[2018-10-15 05:51] LABS: ALT/SGPT 14 U/l (0-40); AST/SGOT 12 U/l (0-37); Albumin 3.6 gm/dL (3.2-5.2); Albumin/Globulin Ratio 1.1 (1.0-2.3); Alkaline Phosphatase 91 U/L (39-117); Bilirubin,Direct < 0.2 mg/dL (0.0-0.3); Bilirubin,Total 0.3 mg/dL (0.0-1.0); Blood Urea Nitrogen 7 mg/dl (6-20); Calcium 8.1 mg/dl (8.6-10.4); Carbon Dioxide 18 mmol/L (22-30); Chloride 101 mmol/L (96-108); Gamma Glutamyl Transpeptidase 44 U/L (5-36); Globulin 3.4 gm/dL (2.2-3.7); Glomerular Filtration Rate 86; Glucose 108 mg/dL (70-105); Lactate Dehydrogenase 184 U/L (94-250); Magnesium 1.8 mg/dL (1.6-2.5); Potassium 3.8 mmol/L (3.3-5.1); Sodium 135 mmol/L (133-145); Triglycerides 68 mg/dl (<150); Uric Acid 4.8 mg/dL (2.5-8.0)
[2018-10-15] MEDS ORDERED: MEROPENEM 1 GM in 0.9 % SODIUM CHLORIDE 50 ML IV SCH ×2 (07:00→14:00)
[2018-10-15] MEDS ORDERED: BECLOMETHASONE DIPROPIONATE 40MCG INHALER INH PRN ×2 (07:06→08:18)
[2018-10-15] MEDS ORDERED: QUEtiapine 100 MG TABLET PO PRN ×2 (07:06→08:18)
[2018-10-15] MEDS ORDERED: traMADol 50 MG TABLET PO PRN ×2 (07:06→08:18)
--- NOTE | 2018-10-15 07:11 | Internal Med Progress Note ---
Medical - PN: Subj Patient information: Note initiated : 10/15/18 at 7:08 am Service Date, if different from initiated Date: [] Patient: Mattie Ortiz a 28 y/o F admitted on 10/14/18 for fever, weakness, headache. Chief Complaint: [] Interval history: Ms. Ortiz is a 28 year old F Presents the ED with severe sore throat headache fever chills. Patient states she went to bed last night feeling fine and this morning woke up with sore throat which describes his shards of glass from throat she has a worsening headache which is sharp top of her head she had fevers and chills she is made comfort become severely weak. In the ER she was worked up and found to have a severe peritonsillar cellulitis with abscess developing on the right with moderate narrowing of the airway. Her airway is not compromised and there is no appearance of impending compromise. She states that hurts to swallow anything even her spit. Vital signs normal to hypertensive blood pressure with tachycardia and fever of 103 and tachypnea. She is given aggressive IV fluid and pain management in the ED with improvement in her symptoms. Says her pain is worse on the right side of her throat. She has no neck stiffness. She does have a history of chronic sinusitis and is recently been on antibiotics including oral clindamycin and Bactrim and she says she is been taking those as scheduled. In the ED she ice packs were used for cooling because of the fact she has severe allergy to NSAIDs and Tylenol. He had a recent sinus surgery by Dr. martino in August which patient says it helped for a while. And also helped with her head aches. Case discussed with Dr. Ortega who will consult on the case possible drainage of her abscess. 10/15 Slept okay. Feeling better overall. Complains of sore throat but again that it is better than last night and does not hurt to breathe like it did before. Headaches improved with this morning. Had fevers throughout the night but improved this morning. Using cold packs as patient is intolerant NSAIDs including aspirin and intolerant acetaminophen. Review of Systems: denies /nausea/vomiting/chest or abdominal pain/cough/dyspnea/diarrhea. Otherwise see above. - Constitutional Vitals: Vital Signs Temp Pulse Resp BP Pulse Ox 100.1 F H 129 H 17 126/83 100 10/15/18 06:00 10/14/18 23:44 10/15/18 06:00 10/15/18 06:00 10/15/18 06:00 Period Temp Pulse Resp BP Sys/Juarez Pulse Ox Last 24 Hr 100.0 F-103.9 F 104-144 4-36 102-166/45-133 79-100 Intake and Output 10/14/18 10/15/18 10/15/18 21:59 05:59 13:59 Intake Total 3192 0 50 Output Total 1700 2430 Balance 1492 -2430 50 Weight 120.457 kg Intake & Output: Intake & Output 10/14/18 10/15/18 10/15/18 21:59 05:59 13:59 Intake Total 3192 0 50 Output Total 1700 2430 Balance 1492 -2430 50 Weight 120.457 kg Intake: IV 2192 50 Sodium Chloride 0.9% 1,000 ml @ 1000 Wide Open IV BOLUS ONE Rx#: [id number] Lactated Ringers 1,000 ml @ 1000 Wide Open IV BOLUS ONE Rx#: [id number] Merrem 1 gm In Sodium Chloride 50 0.9% 50 ml @ 100 mls/hr IV Q8H [facility] Rx#:[id number] Vancomycin 2,000 mg In Sodium 192 Chloride 0.9% 500 ml @ 250 mls/ hr IV ONCE ONE Rx#:[id number] Oral 0 IV - Manual Only 1000 Output: Urine Catheter Amount 1700 2430 Other: Urine Appearance Clear Clear Uretheral (Bansal) Clear Clear Urine Color Pale Pale Uretheral (Bansal) Pale Pale Exam: General: Alert, Awake, no acute distress, obesity Eyes/N/T: EOMI, , Head/Neck: neck supple, CV: Tachycardic but regular, No murmurs, Pulm: Clear b/l, no wheezing/rhonchi/rales Abd: soft, nontender, +BS x4 Ext: no clubbing/cyanosis/edema Neuro: Alert, no focal deficits, moves all extremities, Skin: warm/dry Medical - PN: Obj Da - Labs CBC & Chem 7: 10/15/18 03:30 10/15/18 03:30 Labs: Abnormal Lab Results 10/15/18 10/15/18 10/14/18 03:30 03:30 17:31 WBC 15.7 H Hgb 11.4 L Hct 34.7 L Gran % 93.1 H Lymph % (Auto) 3.5 L Gran # 14.6 H Lymph # (Auto) 0.6 L VBG Lactic Acid Carbon Dioxide 18 L Anion Gap Glucose 108 H Calcium 8.1 L GGT 44 H C-Reactive Protein Urine Protein 30 A Urine RBC 4 H Calcium Carbonate Cryst Few A 10/14/18 10/14/18 10/14/18 16:13 16:13 16:12 WBC 18.1 H Hgb Hct Gran % 90.7 H Lymph % (Auto) 4.9 L Gran # 16.4 H Lymph # (Auto) 0.9 L VBG Lactic Acid 2.8 H Carbon Dioxide 19 L Anion Gap 17.0 H Glucose Calcium GGT C-Reactive Protein 4.4 H Urine Protein Urine RBC Calcium Carbonate Cryst Meds: Medications Albuterol/Ipratropium (Duoneb) 3 ml NEB Q4HRT PRN PRN Reason: Bronchospasm Bisacodyl (Dulcolax) 10 mg NC Q2-3DAYS PRN PRN Reason: Constipation Diphenhydramine HCl (Benadryl) 25 mg IV Q4-6HP PRN PRN Reason: nausea and insomnia Last Admin: 10/14/18 23:12 Dose: 25 mg Documented by: Famotidine (Pepcid) 20 mg IV Q12 [facility] Hydromorphone HCl (Dilaudid) 0.5 mg IV Q2HP PRN PRN Reason: PAIN LEVEL > 6 Last Admin: 10/15/18 04:12 Dose: 0.5 mg Documented by: Sodium Chloride (Sodium Chloride 0.9%) 1,000 mls @ 100 mls/hr IV .Q10H [facility] Stop: 10/15/18 17:52 Last Admin: 10/14/18 23:08 Dose: 100 mls/hr Documented by: Vancomycin HCl 1,500 mg/ (Sodium Chloride) 500 mls @ 333.3 mls/hr IV Q12H [facility] Meropenem 1 gm/ Sodium (Chloride) 50 mls @ 100 mls/hr IV Q8H [facility]; Protocol Methocarbamol (Robaxin) 750 mg IV Q6HP PRN PRN Reason: Muscle Spasm Last Admin: 10/15/18 03:05 Dose: 750 mg Documented by: Metoclopramide HCl (Reglan) 5 mg IV Q6 [facility] Last Admin: 10/15/18 05:34 Dose: 5 mg Documented by: Naloxone HCl (Narcan) 0.1 mg IV Q2MIN PRN PRN Reason: Opiate Reversal Ondansetron HCl (Zofran) 4 mg IV Q4-6HP PRN PRN Reason: Nausea And Vomiting Sodium Chloride (Saline Flush) 10 ml IV Q8 [facility] Last Admin: 10/15/18 05:34 Dose: 10 ml Documented by: Vancomycin HCl (Vancomycin Per Pharmacy) 1 order IV UD [facility]; Protocol Medical - PN: A/P - Time Spent With Patient Total time spent is greater than 50% in coordination of care (as documented) at patient's floor/unit and/or counseling patient: - Narrative A/P Narrative: A: *Peritonsillitis w/abscess on the right: *Sepsis: -leukocytosis improving, lactic acidosis resolved *Chronic sinusitis: *Chronic tachycardia: Patient states HR runs 90-120 normally *Asthma: *Depression/anxiety/pseudoseizures/fibromyalgia/? 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 Ortega following, likely drainage -Merrem/Vanco, pending Cx's -pain control -intolerant of NSAIDS including ASA; intolerant of Acetaminophen -ppx: [facility] Medical - PN: Qual - VTE Deep Vein Thrombosis/Pulmonary Embolism Present on Admission: No
[2018-10-15] MEDS ORDERED: GABAPENTIN 100 MG CAPSULE PO SCH (08:00)
[2018-10-15] MEDS ORDERED: BISACODYL 10 MG SUPP.RECT PR PRN (08:18)
[2018-10-15] MEDS: 0.9 % SODIUM CHLORIDE 1,000 ML IV SCH (08:18)
[2018-10-15] MEDS ORDERED: diphenhydrAMINE 50 MG/ML VIAL IV PRN (08:18)
[2018-10-15] MEDS ORDERED: NALOXONE HCL 0.4 MG/ML VIAL IV PRN (08:18)
[2018-10-15] MEDS ORDERED: IPRATROPIUM/ALBUTEROL 3 ML AMPUL.NEB NEB PRN (08:18)
[2018-10-15] MEDS ORDERED: VANCOMYCIN PER PHARMACY IV SCH (08:18)
[2018-10-15] MEDS ORDERED: 0.9 % SODIUM CHLORIDE 1,000 ML IV SCH (08:18)
[2018-10-15] MEDS: MEROPENEM 1 GM in 0.9 % SODIUM CHLORIDE 50 ML IV SCH (08:23)
[2018-10-15] MEDS: GABAPENTIN 300 MG CAPSULE PO SCH ×4 (08:23→22:54)
[2018-10-15] MEDS: FAMOTIDINE/PF 20 MG/2 ML VIAL IV SCH ×2 (08:56→23:16)
[2018-10-15] MEDS ORDERED: FAMOTIDINE/PF 20 MG/2 ML VIAL IV SCH (09:00)
[2018-10-15] MEDS ORDERED: VANCOMYCIN 1,500 MG in 0.9 % SODIUM CHLORIDE 500 ML IV SCH (09:00)
[2018-10-15] MEDS: METHOCARBAMOL 1,000 MG/10 ML VIAL IV PRN ×2 (09:09→14:20)
[2018-10-15] MEDS ORDERED: CEFEPIME 1 GM VIAL IV SCH (14:00)
[2018-10-15] MEDS ORDERED: DEXAMETHASONE 10 MG/ML VIAL IV ONE (14:16)
[2018-10-15] MEDS ORDERED: HYDROCORTISONE SOD SUCC 100 MG VIAL IV SCH (15:23)
--- NOTE | 2018-10-15 15:38 | Infectious Disease Consult ---
History of Present Illness Patient information: Note initiated : 10/15/18 at 3:37 pm Service Date, if different from initiated Date: [] Patient: Mattie Ortiz 28 y/o F admitted on 10/14/18 for fever, weakness, headache. Chief Complaint: [] Consult date: 10/15/18 Requesting Physician: Mike Edwards Reason for Consult: Tonsillitis with Hx of Penicillin allergy, carbapenem use Chief complaint: my throat hurts History of present illness: 28 year old lady with past history of: - chronic sinusitis: most recently treated with oral Bactrim and Clindamycin. Also had a recent sinus surgery in August by her ENT surgeon - recent discharge from [facility] on 10/09 after being admitted for acute right hemiparesis with facial droop, MRI brain no acute process, thought to be a conversion reaction, precipitated by his psychosocial stressors in life Pt was admitted on 10/14/18 after waking up in the am with acute throat pain, fever, chills. She was fine before she went to bed and didnot have any symptoms. She also reported some headache at time of ED presentation. She denied any sick contacts. In ED, her VS were temp 102.2F, HR 144, BP 125/98, RR 30 [qSOFA 1]. Her labs: WBC 18.1, Cr 1, Lactic acid 2.8. her exam was concerning for severe tonsillitis, and underwent CT of neck which showed "Severe bilateral palatine tonsillitis resulting in moderate narrowing of the oropharyngeal airway. Small abscess [2 cm] developing in the anterior right palatine tonsil. Chronic changes of sinusitis of ethmoid and right frontal sinuses". Pt recieved IV fluids, blood Cx sent and she was admitted. In the ED, ice packs were used for cooling because of the fact she has severe allergy to NSAIDs and Tylenol. Pt was started on IV vanc and IV Meropenem. At time of visit today, she was feeling much better. She had been afebrile since last night at 2 am. She denied any n/v, SOB, cough, neck stiffness. She did report slightly loose BM x 1 today. She still has difficulty swallowing regular fluid, but is able to drink water. She mentioned that her penicillin allergy was > 10 years ago, and she had itching along with throat swelling. She did not remember if she was intubated or not. The first reaction was as a baby and next reaction was in high school (around 2005). Review of Systems All systems PM: reviewed and no additional remarkable complaints except as stated Past History Past family history: no sick contacts lives with her mother Medications and Allergies Home Medications Medication Instructions Recorded Confirmed Type Gabapentin [Neurontin] 900 mg PO QID@08,12,18,22 12/24/15 10/15/18 History Beclomethasone Dipropionate [Qvar 1 puff INH PRN PRN 03/08/16 10/15/18 History 40] Albuterol Sulfate [Ventolin] 2 puff INH Q4HP PRN 04/27/16 10/15/18 History QUEtiapine FUMARATE [Seroquel] 50 - 150 mg PO HSP PRN 10/09/18 10/15/18 History hydrOXYzine [Atarax] 25 mg PO HS 10/09/18 10/15/18 History traMADol [Ultram] 50 - 100 mg PO DAILYP PRN 10/09/18 10/15/18 History Clindamycin [Cleocin] 150 mg PO TID 10/15/18 10/15/18 History Sulfamethoxazole/Trimethoprim 1 tab PO BID 10/15/18 10/15/18 History [Bactrim Ds Tablet] Allergies Allergy/AdvReac Type Severity Reaction Status Date / Time penicillin G [PENICILLIN G] Allergy Severe HIVES AND Verified 10/14/18 15:59 THROAT SWELLED UP phenobarbital [PHENOBARBITAL] Allergy Severe 'THROAT Verified 10/14/18 15:59 SWOLLEN' acetaminophen [From Tylenol] AdvReac Mild Vomiting Verified 10/14/18 15:59 ketorolac [From Toradol] AdvReac Mild Nausea Verified 10/14/18 15:59 NSAIDS (Non-Steroidal AdvReac Mild Vomiting Verified 10/14/18 15:59 Anti-Inflamma promethazine [From Phenergan] AdvReac Mild Twitching Verified 10/14/18 15:59 ibuprofen AdvReac Unknown Verified 10/14/18 15:59 Physical Examination Vital signs: Temp Pulse Resp BP Pulse Ox 36.6 C 129 H 22 118/91 100 10/15/18 12:17 10/14/18 23:44 10/15/18 12:17 10/15/18 12:17 10/15/18 12:21 General appearance: appears uncomfortable Eyes pulmonary: nonicteric ENT: other (has b/l tonsillar enlargement (don;t meet in midline), right > left, with surface of tonsils having yellow colored pustules, pt able to open mouth without difficulty) Neck: lymphadenopathy (b/l cervical) Effort: normal Auscultation: bilateral: clear Cardiovascular: regular rate and rhythm Gastrointestinal: normoactive bowel sounds, soft, non-tender Extremities: no edema Results - Laboratory Findings CBC and BMP: 10/15/18 03:30 10/15/18 03:30 Abnormal lab findings: Abnormal Labs 10/14/18 10/14/18 10/14/18 16:12 16:13 16:13 WBC 18.1 H Hgb Hct Gran % 90.7 H Lymph % (Auto) 4.9 L Gran # 16.4 H Lymph # (Auto) 0.9 L VBG Lactic Acid 2.8 H Carbon Dioxide 19 L Anion Gap 17.0 H Glucose Calcium GGT C-Reactive Protein 4.4 H Urine Protein Urine RBC Calcium Carbonate Cryst 10/14/18 10/15/18 10/15/18 17:31 03:30 03:30 WBC 15.7 H Hgb 11.4 L Hct 34.7 L Gran % 93.1 H Lymph % (Auto) 3.5 L Gran # 14.6 H Lymph # (Auto) 0.6 L VBG Lactic Acid Carbon Dioxide 18 L Anion Gap Glucose 108 H Calcium 8.1 L GGT 44 H C-Reactive Protein Urine Protein 30 A Urine RBC 4 H Calcium Carbonate Cryst Few A Microbiology: Microbiology 10/14/18 22:09 Nose MRSA (PCR) - Final Assessment and Plan - Narrative A/P Narrative: A: 1. Acute bilateral bacterial tonsillitis (Rt > Lt) with intra-tonsillar abscess (2 cm) without any evidence of peritonsillar extension, airway involvement - most likely due to Streptococci or Fusobacterium. No Hx of MRSA infection, na barry MRSA PCR at this adm neg - pt with no trismus, muffled voice - responding clinically to antibiotic therapy - qSOFA 0 at time of visit, was 1 at time of admission (RR >22). SOFA score 0. No evidence of life-threatening organ dysfunction 2. History of penicillin allergy: >10 years ago {pt mentions she was a baby and also in high school] Recommendations: - Stop IV Vanc and IV Meropenem. Start IV Ceftriaxone 2 gm q24 hrs and IV Metronidazole 500 mg q8 hrs - will switch to PO options, once pt more stable, able to swallow and out of ICU - will send throat Cx, throat screen for Gp A Strept - await blood Cx result - I discussed with pt about penicillin allergy, its implications and how majori ty of penicillin allergy antibodies disappear after 10 years of having a reaction. Pt is agreeable to undergo graded oral amoxicillin challenge to rule out penicillin allergy. will initiate that tomorrow in the day will follow Bandar Morris MD Infectious diseases
[2018-10-15] MEDS: cefTRIAXone 2 GM in DEXTROSE 5% IN WATER 50 ML IV SCH (16:17)
[2018-10-15] MEDS: metroNIDAZOLE 500 MG/100 ML BAG IV SCH ×2 (16:53→22:57)
[2018-10-15] MEDS: ONDANSETRON 4 MG/2 ML VIAL IV PRN (17:41)
[2018-10-15] MEDS ORDERED: hydrOXYzine 25 MG TABLET PO SCH (21:00)
[2018-10-15] MEDS: hydrOXYzine 25 MG TABLET PO SCH (22:54)
[2018-10-16] MEDS: METHOCARBAMOL 1,000 MG/10 ML VIAL IV PRN ×3 (01:25→21:25)
[2018-10-16] MEDS: HYDROmorphone 2 MG/ML VIAL IV PRN ×9 (02:27→21:24)
[2018-10-16] MEDS: metroNIDAZOLE 500 MG/100 ML BAG IV SCH ×2 (04:50→06:07)
[2018-10-16 05:46] LABS: Basophils # (Auto) 0 K/mcL (0.0-0.3); Basophils % (Auto) 0.3 % (0.0-2.0); Eosinophils # (Auto) 0 K/mcL (0.0-0.7); Eosinophils % (Auto) 0.4 % (0.0-7.0); Granulocytes % (Auto) 78.9 % (38.0-78.0); Hematocrit 31.7 % (36.0-48.0); Hemoglobin 10.3 g/dL (12.0-15.0); Lymphocytes # (Auto) 1.9 K/mcL (1.5-4.8); Lymphocytes % (Auto) 15.7 % (15.5-49.0); Mean Cell Volume 81.1 fL (80.0-100.0); Mean Corpuscular HGB Conc 32.5 g/dL (31.0-36.0); Mean Platelet Volume 8.2 fL (7.4-10.4); Monocytes # (Auto) 0.6 K/mcL (0.1-0.9); Monocytes % (Auto) 4.7 % (1.0-12.0); Platelet Count 302 K/mcL (140-440); RBC 3.91 M/mcL (4.00-5.20); Red Cell Distribution Width 14.5 % (11.5-14.5); WBC 12.2 K/mcL (4.5-11.0)
[2018-10-16 06:03] LABS: Blood Urea Nitrogen 8 mg/dl (6-20); Calcium 8.4 mg/dl (8.6-10.4); Carbon Dioxide 20 mmol/L (22-30); Chloride 107 mmol/L (96-108); Glomerular Filtration Rate 116; Glucose 87 mg/dL (70-105); Potassium 4.1 mmol/L (3.3-5.1); Sodium 139 mmol/L (133-145)
[2018-10-16] MEDS: METOCLOPRAMIDE 10 MG/2 ML VIAL IV SCH ×4 (06:07→23:19)
[2018-10-16] MEDS: 0.9 % SODIUM CHLORIDE 10 ML SYRINGE IV SCH ×3 (06:08→21:26)
[2018-10-16] MEDS: FAMOTIDINE/PF 20 MG/2 ML VIAL IV SCH ×2 (08:27→21:25)
[2018-10-16] MEDS: ONDANSETRON 4 MG/2 ML VIAL IV PRN ×2 (08:28→14:02)
[2018-10-16] MEDS: cefTRIAXone 2 GM in DEXTROSE 5% IN WATER 50 ML IV SCH (08:36)
[2018-10-16] MEDS: GABAPENTIN 300 MG CAPSULE PO SCH ×4 (09:27→21:24)
--- NOTE | 2018-10-16 12:33 | Internal Med Progress Note ---
Medical - PN: Subj Patient information: Note initiated : 10/16/18 at 12:30 pm Service Date, if different from initiated Date: [] Patient: Mattie Ortiz a 28 y/o F admitted on 10/14/18 for fever, weakness, headache. Chief Complaint: [] Interval history: Ms. Ortiz is a 28 year old F Presents the ED with severe sore throat headache fever chills. Patient states she went to bed last night feeling fine and this morning woke up with sore throat which describes his shards of glass from throat she has a worsening headache which is sharp top of her head she had fevers and chills she is made comfort become severely weak. In the ER she was worked up and found to have a severe peritonsillar cellulitis with abscess developing on the right with moderate narrowing of the airway. Her airway is not compromised and there is no appearance of impending compromise. She states that hurts to swallow anything even her spit. Vital signs normal to hypertensive blood pressure with tachycardia and fever of 103 and tachypnea. She is given aggressive IV fluid and pain management in the ED with improvement in her symptoms. Says her pain is worse on the right side of her throat. She has no neck stiffness. She does have a history of chronic sinusitis and is recently been on antibiotics including oral clindamycin and Bactrim and she says she is been taking those as scheduled. In the ED she ice packs were used for cooling because of the fact she has severe allergy to NSAIDs and Tylenol. He had a recent sinus surgery by Dr. martino in August which patient says it helped for a while. And also helped with her head aches. Case discussed with Dr. Ortega who will consult on the case possible drainage of her abscess. 10/15 Slept okay. Feeling better overall. Complains of sore throat but again that it is better than last night and does not hurt to breathe like it did before. Headaches improved with this morning. Had fevers throughout the night but improved this morning. Using cold packs as patient is intolerant NSAIDs including aspirin and intolerant acetaminophen. 10/16 Patient seen examined, no acute issues, tolerating po diet well, wbc trending down seen by Dr Ortega and Infectious disease monitor 1 more day, anticpiate d/c once cleared by ID Pertinent ROS: Denies headache, dizziness Denies chest pain, palpitations Denies cough or shortness of breath Denies abdominal pain, nausea or vomiting. - Constitutional Vitals: Vital Signs Temp Pulse Resp BP Pulse Ox 97.8 F 102 H 18 110/58 97 10/16/18 08:00 10/16/18 08:00 10/16/18 08:00 10/16/18 08:00 10/16/18 08:00 Period Temp Pulse Resp BP Sys/Juarez Pulse Ox Last 24 Hr 97.6 F-98.5 F 87-114 18-24 101-169/51-81 97-100 Intake and Output 10/15/18 10/16/18 10/16/18 21:59 05:59 13:59 Intake Total 150 560 630 Output Total 1900 700 800 Balance -1750 -140 -170 Weight 239 lb Intake & Output: Intake & Output 10/15/18 10/16/18 10/16/18 21:59 05:59 13:59 Intake Total 150 560 630 Output Total 1900 700 800 Balance -1750 -140 -170 Weight 239 lb Intake: IV 150 100 150 Rocephin 2 gm In Dextrose 5% in 50 50 Water 50 ml @ 100 mls/hr IV Q24H [facility] Rx#:[id number] Oral 460 480 Output: Void Amount 1900 700 800 Other: Meal Breakfast Percent of Meal Consumed 100% Feeding Ability Independent Urine Appearance Clear Clear Urine Color Pale Dark Yellow Dark Yellow Urine Odor Normal Normal Stool Size Small Stool Color Brown Yellow Stool Consistency Loose # Bowel Movements 1 Exam: Constitutional; Afebrile, cooperative, alert, not in distress. Respiratory system: Air Entry equal on both sides, No crackles or wheezing, no rhonchi. CVS- Rate rhythm regular, S1,S2 heard, no gallop, no rub. Abdomen- Soft nontender abdomen, no organomegaly, no tenderness, no guarding or rigidity, NURSING HOME ADMISSIONS DIRECTOR- AOOx3, moving all extremities, no gross focal deficit noted. Medical - PN: Obj Da - Labs CBC & Chem 7: 10/16/18 04:00 10/16/18 04:00 Labs: Abnormal Lab Results 10/16/18 10/16/18 10/16/18 04:00 04:00 04:00 WBC 12.2 H RBC 3.91 L Hgb 10.3 L Hct 31.7 L Gran % 78.9 H Lymph % (Auto) Gran # 9.6 H Lymph # (Auto) VBG Lactic Acid Carbon Dioxide 20 L Anion Gap Glucose Calcium 8.4 L GGT C-Reactive Protein 18.2 H Urine Protein Urine RBC Calcium Carbonate Cryst 10/15/18 10/15/18 10/14/18 03:30 03:30 17:31 WBC 15.7 H RBC Hgb 11.4 L Hct 34.7 L Gran % 93.1 H Lymph % (Auto) 3.5 L Gran # 14.6 H Lymph # (Auto) 0.6 L VBG Lactic Acid Carbon Dioxide 18 L Anion Gap Glucose 108 H Calcium 8.1 L GGT 44 H C-Reactive Protein Urine Protein 30 A Urine RBC 4 H Calcium Carbonate Cryst Few A 10/14/18 10/14/18 10/14/18 16:13 16:13 16:12 WBC 18.1 H RBC Hgb Hct Gran % 90.7 H Lymph % (Auto) 4.9 L Gran # 16.4 H Lymph # (Auto) 0.9 L VBG Lactic Acid 2.8 H Carbon Dioxide 19 L Anion Gap 17.0 H Glucose Calcium GGT C-Reactive Protein 4.4 H Urine Protein Urine RBC Calcium Carbonate Cryst Meds: Medications Albuterol/Ipratropium (Duoneb) 3 ml NEB Q4HRT PRN PRN Reason: Bronchospasm Beclomethasone Dipropionate (Qvar 40) 1 puff INH BIDP PRN PRN Reason: Shortness Of Breath Bisacodyl (Dulcolax) 10 mg ID Q2-3DAYS PRN PRN Reason: Constipation Diphenhydramine HCl (Benadryl) 25 mg IV Q4-6HP PRN PRN Reason: nausea and insomnia Last Admin: 10/15/18 10:28 Dose: 25 mg Documented by: Famotidine (Pepcid) 20 mg IV Q12 [facility] Last Admin: 10/16/18 08:27 Dose: 20 mg Documented by: Gabapentin (Neurontin) 900 mg PO QID@08,12,18,22 [facility] Last Admin: 10/16/18 12:22 Dose: 900 mg Documented by: Hydromorphone HCl (Dilaudid) 0.5 mg IV Q2HP PRN PRN Reason: PAIN LEVEL > 6 Last Admin: 10/16/18 11:26 Dose: 0.5 mg Documented by: Hydroxyzine HCl (Atarax) 25 mg PO HS [facility] Last Admin: 10/15/18 22:54 Dose: 25 mg Documented by: Ceftriaxone Sodium 2 gm/ (Dextrose) 50 mls @ 100 mls/hr IV Q24H [facility]; Protocol Last Infusion: 10/16/18 09:10 Dose: Infused Documented by: Metronidazole (Flagyl) 500 mg in 100 mls @ 100 mls/hr IV Q8H [facility]; Protocol Last Infusion: 10/16/18 07:10 Dose: Infused Documented by: Methocarbamol (Robaxin) 750 mg IV Q6HP PRN PRN Reason: Muscle Spasm Last Admin: 10/16/18 07:18 Dose: 750 mg Documented by: Metoclopramide HCl (Reglan) 5 mg IV Q6 [facility] Last Admin: 10/16/18 12:21 Dose: 5 mg Documented by: Naloxone HCl (Narcan) 0.1 mg IV Q2MIN PRN PRN Reason: Opiate Reversal Ondansetron HCl (Zofran) 4 mg IV Q4-6HP PRN PRN Reason: Nausea And Vomiting Last Admin: 10/16/18 08:28 Dose: 4 mg Documented by: Quetiapine Fumarate (Seroquel) 50 - 150 mg PO HSP PRN PRN Reason: Insomnia Sodium Chloride (Saline Flush) 10 ml IV Q8 [facility] Last Admin: 10/16/18 06:08 Dose: 10 ml Documented by: Tramadol HCl (Ultram) 50 - 100 mg PO DAILYP PRN PRN Reason: Pain Last Admin: 10/16/18 09:27 Dose: 100 mg Documented by: Medical - PN: A/P - Time Spent With Patient Total time spent is greater than 50% in coordination of care (as documented) at patient's floor/unit and/or counseling patient: - Narrative A/P Narrative: sepsis -resolved Peritonsillar abscess -seen by ENT, no need for surgery -on antibiotics per infectious disease (multiple allergies) -clinically improving, -anticipate d/c in AM Chr tachycardia -stable Depression/anxiety/pseudoseizures/ fibromyalgia -resume home meds, stable for now Chr pain -cotinue home regime, Anticipate d/c in AM once cleared by ID Obesity -BMI 38.6 Medical - PN: Qual - VTE Deep Vein Thrombosis/Pulmonary Embolism Present on Admission: No
--- NOTE | 2018-10-16 12:51 | Infectious Disease Prog Note ---
Subjective Patient information: Note initiated : 10/16/18 at 12:46 pm Service Date, if different from initiated Date: [] Patient: Mattie Ortiz 28 y/o F admitted on 10/14/18 for fever, weakness, headache. Chief Complaint: [] Pertinent ROS: Pt doing better. Transferred out of ICU. Denied any fevers, chills, n/v. Had a loose BM yesterday. Eating food, able to swallow pills. Shared information about penicillin skin testing as she is slightly nervous at this time due to her illness. Objective Objective Narrative: ao x 3, in nad no thrush has b/l tonsillar enlargement (Rt >> Lt), some visible pustules over the surface of tonsils, some hemorrhage on the surface chest cta with VBS s1 s2 normal, no m/r/g - Vital Signs Vital signs: Vital Signs Temp Pulse Pulse Resp BP BP BP 10/16/18 12:00 37.1 C 104 H 18 116/66 10/16/18 08:00 36.6 C 102 H 18 110/58 10/16/18 03:43 36.9 C 104 H 20 101/56 10/15/18 23:15 36.9 C 110 H 24 H 126/81 10/15/18 18:53 36.4 C 114 H 24 H 122/78 10/15/18 16:00 36.6 C 87 18 169/51 Pulse Ox 10/16/18 12:00 98 10/16/18 08:00 97 10/16/18 03:43 97 10/15/18 23:15 98 10/15/18 18:53 97 10/15/18 16:00 100 Intake and Output 10/15/18 10/16/18 10/16/18 21:59 05:59 13:59 Intake Total 150 560 630 Output Total 1900 700 800 Balance -1750 -140 -170 Intake: IV 150 100 150 Rocephin 2 gm In Dextrose 5% in 50 50 Water 50 ml @ 100 mls/hr IV Q24H [facility] Rx#:[id number] Oral 460 480 Output: Void Amount 1900 700 800 Other: Meal Breakfast Percent of Meal Consumed 100% Feeding Ability Independent Urine Appearance Clear Clear Urine Color Pale Dark Yellow Dark Yellow Urine Odor Normal Normal Stool Size Small Stool Color Brown Yellow Stool Consistency Loose # Bowel Movements 1 Weight 108.409 kg Intake & Output: Intake & Output 10/15/18 10/16/18 10/16/18 21:59 05:59 13:59 Intake Total 150 560 630 Output Total 1900 700 800 Balance -1750 -140 -170 Weight 108.409 kg Intake: IV 150 100 150 Rocephin 2 gm In Dextrose 5% in 50 50 Water 50 ml @ 100 mls/hr IV Q24H [facility] Rx#:[id number] Oral 460 480 Output: Void Amount 1900 700 800 Other: Meal Breakfast Percent of Meal Consumed 100% Feeding Ability Independent Urine Appearance Clear Clear Urine Color Pale Dark Yellow Dark Yellow Urine Odor Normal Normal Stool Size Small Stool Color Brown Yellow Stool Consistency Loose # Bowel Movements 1 - Lab 10/17/18 07:27 10/16/18 04:00 Most recent lab results Calcium 8.4 mg/dl (8.6-10.4) L 10/16/18 04:00 Phosphorus 3.0 mg/dL (2.7-4.5) 10/15/18 03:30 Magnesium 1.8 mg/dL (1.6-2.5) 10/15/18 03:30 Microbiology 10/15/18 18:18 Throat Throat Culture - Preliminary 10/15/18 18:18 Throat Group A Streptococcus Screen (OSCAR) - Final 10/14/18 16:15 Blood Blood Culture - Preliminary 10/14/18 16:27 Blood Blood Culture - Preliminary 10/14/18 22:09 Nose MRSA (PCR) - Final Medications Active Medications: Albuterol/Ipratropium (Duoneb) 3 ml NEB Q4HRT PRN PRN Reason: Bronchospasm Beclomethasone Dipropionate (Qvar 40) 1 puff INH BIDP PRN PRN Reason: Shortness Of Breath Bisacodyl (Dulcolax) 10 mg AR Q2-3DAYS PRN PRN Reason: Constipation Diphenhydramine HCl (Benadryl) 25 mg IV Q4-6HP PRN PRN Reason: nausea and insomnia Last Admin: 10/15/18 10:28 Dose: 25 mg Documented by: [email or web address] Famotidine (Pepcid) 20 mg IV Q12 [facility] Last Admin: 10/16/18 08:27 Dose: 20 mg Documented by: Admin: 10/15/18 23:16 Dose: 20 mg Documented by: Admin: 10/15/18 08:56 Dose: 20 mg Documented by: [email or web address] Gabapentin (Neurontin) 900 mg PO QID@08,12,18,22 [facility] Last Admin: 10/16/18 12:22 Dose: 900 mg Documented by: Admin: 10/16/18 09:27 Dose: 900 mg Documented by: [facility] Admin: 10/15/18 22:54 Dose: 900 mg Documented by: Admin: 10/15/18 19:18 Dose: 900 mg Documented by: Admin: 10/15/18 12:22 Dose: Not Given Documented by: [email or web address] Non-Admin Reason: NPO Admin: 10/15/18 08:23 Dose: Not Given Documented by: [email or web address] Non-Admin Reason: NPO Hydromorphone HCl (Dilaudid) 0.5 mg IV Q2HP PRN PRN Reason: PAIN LEVEL > 6 Last Admin: 10/16/18 11:26 Dose: 0.5 mg Documented by: Fabian Admin: 10/16/18 09:26 Dose: 0.5 mg Documented by: [facility] Admin: 10/16/18 07:19 Dose: 0.5 mg Documented by: [facility] Admin: 10/16/18 04:38 Dose: 0.5 mg Documented by: Admin: 10/16/18 02:27 Dose: 0.5 mg Documented by: Admin: 10/15/18 23:15 Dose: 0.5 mg Documented by: Admin: 10/15/18 19:06 Dose: 0.5 mg Documented by: Admin: 10/15/18 16:43 Dose: 0.5 mg Documented by: Admin: 10/15/18 14:39 Dose: 0.5 mg Documented by: Admin: 10/15/18 12:23 Dose: 0.5 mg Documented by: Admin: 10/15/18 10:01 Dose: 0.5 mg Documented by: [email or web address] Hydroxyzine HCl (Atarax) 25 mg PO HS [facility] Last Admin: 10/15/18 22:54 Dose: 25 mg Documented by: ALEXA Ceftriaxone Sodium 2 gm/ (Dextrose) 50 mls @ 100 mls/hr IV Q24H [facility]; Protocol Last Infusion: 10/16/18 09:10 Dose: 0 mls/hr Documented by: Admin: 10/16/18 08:36 Dose: 100 mls/hr Documented by: Infusion: 10/15/18 18:01 Dose: 0 mls/hr Documented by: Admin: 10/15/18 16:17 Dose: 100 mls/hr Documented by: MELY Methocarbamol (Robaxin) 750 mg IV Q6HP PRN PRN Reason: Muscle Spasm Last Admin: 10/16/18 07:18 Dose: 750 mg Documented by: Admin: 10/16/18 01:25 Dose: 750 mg Documented by: Admin: 10/15/18 14:20 Dose: 750 mg Documented by: Admin: 10/15/18 09:09 Dose: 750 mg Documented by: [email or web address] Metoclopramide HCl (Reglan) 5 mg IV Q6 [facility] Last Admin: 10/16/18 12:21 Dose: 5 mg Documented by: Admin: 10/16/18 06:07 Dose: 5 mg Documented by: Admin: 10/15/18 23:16 Dose: 5 mg Documented by: Admin: 10/15/18 18:10 Dose: 5 mg Documented by: Admin: 10/15/18 12:24 Dose: 5 mg Documented by: [email or web address] Metronidazole (Flagyl) 500 mg PO Q8 [facility]; Protocol Naloxone HCl (Narcan) 0.1 mg IV Q2MIN PRN PRN Reason: Opiate Reversal Ondansetron HCl (Zofran) 4 mg IV Q4-6HP PRN PRN Reason: Nausea And Vomiting Last Admin: 10/16/18 08:28 Dose: 4 mg Documented by: Admin: 10/15/18 17:41 Dose: 4 mg Documented by: NAZANIN Quetiapine Fumarate (Seroquel) 50 - 150 mg PO HSP PRN PRN Reason: Insomnia Sodium Chloride (Saline Flush) 10 ml IV Q8 [facility] Last Admin: 10/16/18 06:08 Dose: 10 ml Documented by: Admin: 10/15/18 23:18 Dose: 10 ml Documented by: Admin: 10/15/18 14:39 Dose: 10 ml Documented by: [email or web address] Tramadol HCl (Ultram) 50 - 100 mg PO DAILYP PRN PRN Reason: Pain Last Admin: 10/16/18 09:27 Dose: 100 mg Documented by: TIANA Assessment and Plan - Narrative A/P Narrative: A: 1. Acute bilateral bacterial tonsillitis (Rt > Lt) with intra-tonsillar abscess (2 cm) without any evidence of peritonsillar extension, airway involvement - most likely due to Streptococci or Fusobacterium. No Hx of MRSA infection, nasal MRSA PCR at this adm neg - pt with no trismus, muffled voice. Responding clinically to antibiotic therapy. Transfer out of ICU today - qSOFA 0 at time of visit, was 1 at time of admission (RR >22). SOFA score 0. No evidence of life-threatening organ dysfunction - on day 3 of antibiotics 2. History of penicillin allergy: >10 years ago {pt mentions she was a baby and also in high school] Recommendations: - Continue IV Ceftriaxone 2 gm q24 hrs - will switch IV Metronidazole to PO Metronidazole 500 mg q8 hrs, - will switch to PO Cefuroxime axetil 500 mg bid tomorrow - Pt could be discharged home tomorrow if she continues to do well - Pt would like to opt for outpatient penicillin skin testing. Shared info rmation and AMA patient flyer about penicillin allergy. Will contact pt after discharge will follow Bandar Morris MD Infectious diseases
[2018-10-16] MEDS: metroNIDAZOLE 500 MG TABLET PO SCH ×2 (14:01→21:24)
[2018-10-16] MEDS: hydrOXYzine 25 MG TABLET PO SCH (21:24)
[2018-10-17] MEDS: HYDROmorphone 2 MG/ML VIAL IV PRN ×5 (00:18→12:02)
[2018-10-17] MEDS: metroNIDAZOLE 500 MG TABLET PO SCH (05:54)
[2018-10-17] MEDS: 0.9 % SODIUM CHLORIDE 10 ML SYRINGE IV SCH (05:54)
[2018-10-17] MEDS: METOCLOPRAMIDE 10 MG/2 ML VIAL IV SCH ×2 (05:54→12:02)
[2018-10-17] MEDS: METHOCARBAMOL 1,000 MG/10 ML VIAL IV PRN (07:52)
[2018-10-17] MEDS: GABAPENTIN 300 MG CAPSULE PO SCH ×2 (07:53→12:01)
[2018-10-17 08:11] LABS: Basophils # (Auto) 0.1 K/mcL (0.0-0.3); Basophils % (Auto) 0.6 % (0.0-2.0); Eosinophils # (Auto) 0.5 K/mcL (0.0-0.7); Eosinophils % (Auto) 4.8 % (0.0-7.0); Granulocytes % (Auto) 64.7 % (38.0-78.0); Hematocrit 34.8 % (36.0-48.0); Hemoglobin 11.3 g/dL (12.0-15.0); Lymphocytes # (Auto) 2.3 K/mcL (1.5-4.8); Lymphocytes % (Auto) 23.8 % (15.5-49.0); Mean Cell Volume 80.5 fL (80.0-100.0); Mean Corpuscular HGB Conc 32.5 g/dL (31.0-36.0); Mean Platelet Volume 7.9 fL (7.4-10.4); Monocytes # (Auto) 0.6 K/mcL (0.1-0.9); Monocytes % (Auto) 6.1 % (1.0-12.0); Platelet Count 305 K/mcL (140-440); RBC 4.33 M/mcL (4.00-5.20); Red Cell Distribution Width 14.5 % (11.5-14.5); WBC 9.8 K/mcL (4.5-11.0)
[2018-10-17] MEDS: cefTRIAXone 2 GM in DEXTROSE 5% IN WATER 50 ML IV SCH (08:19)
[2018-10-17] MEDS: FAMOTIDINE/PF 20 MG/2 ML VIAL IV SCH (09:55)
--- NOTE | 2018-10-17 11:23 | Discharge Summary ---
Medical - DS: Prov Patient information: Note initiated : 10/17/18 at 11:07 am Service Date, if different from initiated Date: [] Patient: Mattie Ortiz 28 y/o F admitted on 10/14/18 for fever, weakness, headache. Chief Complaint: [] Date of admission: 10/14/18 21:50 Discharge date: 10/17/18 Primary care physician: Samia Dakwins Consults: 10/14/18 Consult to Physician [CONS] Stat Comment: Consulting Provider: Mike Edwards Reason For Exam: Physician to Consult Consult to Physician [CONS] Stat Comment: Consulting Provider: Eri Ortega Reason For Exam: Physician to Consult 10/15/18 15:20 Consult to Infectious Disease [CONS] Routine Comment: penicillin allergy, tonsillar abscess Consulting Provider: Bandar Morris Reason For Exam: Physician to Consult Discharging clinician: Reji Leal Medical - DS: Meds - Discharge Medications Prescriptions: Cephalexin [Keflex] 500 mg PO QID #28 cap metroNIDAZOLE [Flagyl] 500 mg PO TID #21 tab Active and Home Medications: Home Medications Gabapentin [Neurontin] 900 mg PO QID@08,12,18,22 12/24/15 [History Confirmed 10/15/18 Last Taken 10/14/18 08:00] Beclomethasone Dipropionate [Qvar 40] 1 puff INH PRN PRN 03/08/16 [History Confirmed 10/15/18 Last Taken 10/08/18] Albuterol Sulfate [Ventolin] 2 puff INH Q4HP PRN 04/27/16 [History Confirmed 10/15/18 Last Taken 10/14/18 08:00] QUEtiapine FUMARATE [Seroquel] 50 - 150 mg PO HSP PRN 10/09/18 [History Confirmed 10/15/18 Last Taken 10/13/18 21:00] hydrOXYzine [Atarax] 25 mg PO HS 10/09/18 [History Confirmed 10/15/18 Last Taken 10/13/18 21:00] traMADol [Ultram] 50 - 100 mg PO DAILYP PRN 10/09/18 [History Confirmed 10/15/18 Last Taken 10/13/18 21:00] Clindamycin [Cleocin] 150 mg PO TID 10/15/18 [History Confirmed 10/15/18 Last Taken 10/13/18 21:00] Sulfamethoxazole/Trimethoprim [Bactrim Ds Tablet] 1 tab PO BID 10/15/18 [History Confirmed 10/15/18 Last Taken 10/13/18 21:00] Medical - DS: Hosp Hospital course: Ms. Ortiz is a 28 year old F Presents the ED with severe sore throat headache fever chills. Patient states she went to bed last night feeling fine and this morning woke up with sore throat which describes his shards of glass from throat she has a worsening headache which is sharp top of her head she had fevers and chills she is made comfort become severely weak. In the ER she was worked up and found to have a severe peritonsillar cellulitis with abscess developing on the right with moderate narrowing of the airway. Her airway is not compromised and there is no appearance of impending compromise. She states that hurts to swallow anything even her spit. Vital signs normal to hypertensive blood pressure with tachycardia and fever of 103 and tachypnea. She is given aggressive IV fluid and pain management in the ED with improvement in her symptoms. Says her pain is worse on the right side of her throat. She has no neck stiffness. She does have a history of chronic sinusitis and is recently been on antibiotics including oral clindamycin and Bactrim and she says she is been taking those as scheduled. In the ED she ice packs were used for cooling because of the fact she has severe allergy to NSAIDs and Tylenol. He had a recent sinus surgery by Dr. martino in August which patient says it helped for a while. And also helped with her headaches. Case discussed with Dr. Ortega who will consult on the case possible drainage of her abscess. 10/15 Slept okay. Feeling better overall. Complains of sore throat but again that it is better than last night and does not hurt to breathe like it did before. Headaches improved with this morning. Had fevers throughout the night but improved this morning. Using cold packs as patient is intolerant NSAIDs including aspirin and intolerant acetaminophen. 10/16 Patient seen examined, no acute issues, tolerating po diet well, wbc trending down seen by Dr Ortega and Infectious disease monitor 1 more day, anticipate d/c once cleared by ID 10/17 Pt seen examined, no issues, toleraing po diet well, wbc normalized stable for discharge, po keflex and metronidazole as per Infectious disease for 7 days Follow up with PCP as outpatient no changes made to [facility] home medication list. Discharge diagnosis: tonsillar abscess - Time Spent with Patient Total time spent providing and/or coordinating discharge services: Less than 30 minutes Medical - DS: Exam - Constitutional Vitals: Vital Signs Temp Pulse Resp BP Pulse Ox 10/17/18 08:00 97.8 F 20 132/84 97 10/17/18 04:05 98.3 F 96 H 20 128/93 98 10/17/18 00:16 99.0 F 108 H 24 H 116/80 97 10/16/18 19:17 98.7 F 117 H 24 H 101/53 97 10/16/18 15:15 99.3 F H 112 H 14 115/70 97 10/16/18 12:00 98.7 F 104 H 18 116/66 98 Intake and Output 10/16/18 10/17/18 10/17/18 21:59 05:59 13:59 Intake Total 725 700 350 Output Total 1999 1400 900 Balance -3185 -700 -550 Intake: IV 50 Rocephin 2 gm In Dextrose 5% in 50 Water 50 ml @ 100 mls/hr IV Q24H [facility] Rx#:[id number] Oral 725 700 300 Output: Void Amount 1999 1399 900 Other: Meal Breakfast Percent of Meal Consumed 100% Feeding Ability Independent Urine Appearance Clear Clear Urine Color Bright Yellow Pale Urine Odor Normal Weight 262 lb Additional comments: Constitutional; Afebrile, cooperative, alert, not in distress. Respiratory system: Air Entry equal on both sides, No crackles or wheezing, no rhonchi. CVS- Rate rhythm regular, S1,S2 heard, no gallop, no rub. Abdomen- Soft nontender abdomen, no organomegaly, no tenderness, no guarding or rigidity, CHEMIC MANGLER- AOOx3, moving all extremities, no gross focal deficit noted. Medical - DS: Data Labs on day of discharge: Labs from last 24 hours 10/17/18 07:27 WBC 9.8 RBC 4.33 Hgb 11.3 L Hct 34.8 L MCV 80.5 MCH 26.1 MCHC 32.5 RDW 14.5 Plt Count 305 MPV 7.9 Gran % 64.7 Lymph % (Auto) 23.8 [facility] % (Auto) 6.1 Eos % (Auto) 4.8 Baso % (Auto) 0.6 Gran # 6.4 Lymph # (Auto) 2.3 [facility] # (Auto) 0.6 Eos # (Auto) 0.5 Baso # (Auto) 0.1 Preliminary micro results at discharge 10/14/18 16:15 Blood Culture - Preliminary Blood 10/14/18 16:27 Blood Culture - Preliminary Blood Medical - DS: A/P - Patient/Caregiver Discharge Instructions Activity: increase activity as tolerated Diet: Regular Diet Additional Instructions: take antibiotics till gone. follow up with PCP in 7 - 10 days Go to the ER if worsening symptoms, fever or any other acute concern No changes have been done to your [facility] home medication list, take them as prescribed by your PCP - Follow up Plan Follow up with: Samia Dawkins ARNP [Primary Care Provider] - Disposition: Home, Self-Care Prognosis: Good Rehab Potential: Good I certify that the patient requires SNF services: No Overall status at discharge: patient is progressing back to baseline Medical - DS: Qual - VTE Deep Vein Thrombosis/Pulmonary Embolism Present on Admission: No
--- NOTE | 2018-10-17 11:37 | Infectious Disease Prog Note ---
Subjective Patient information: Note initiated : 10/17/18 at 11:35 am Service Date, if different from initiated Date: [] Patient: Mattie Ortiz 28 y/o F admitted on 10/14/18 for fever, weakness, headache. Chief Complaint: [] Interval history: Pt feels much better today. Denied any fever, chills, n/v/d. Is ready to go home. Objective Objective Narrative: ao x 3, in nad no thrush tonsillar swelling has improved with decrease in redness, size, no visible pustules on surface chest cta s1 s2 normal - Vital Signs Vital signs: Vital Signs Temp Pulse Resp BP Pulse Ox 10/17/18 08:00 36.6 C 20 132/84 97 10/17/18 04:05 36.8 C 96 H 20 128/93 98 10/17/18 00:16 37.2 C 108 H 24 H 116/80 97 10/16/18 19:17 37.1 C 117 H 24 H 101/53 97 10/16/18 15:15 37.4 C H 112 H 14 115/70 97 10/16/18 12:00 37.1 C 104 H 18 116/66 98 Intake and Output 10/16/18 10/17/18 10/17/18 21:59 05:59 13:59 Intake Total 725 700 350 Output Total 1999 Balance -2405 -700 -812 Intake: IV 50 Rocephin 2 gm In Dextrose 5% in 50 Water 50 ml @ 100 mls/hr IV Q24H [facility] Rx#:[id number] Oral 725 700 300 Output: Void Amount 1999 Other: Meal Breakfast Percent of Meal Consumed 100% Feeding Ability Independent Urine Appearance Clear Clear Urine Color Bright Yellow Pale Urine Odor Normal Weight 118.841 kg Intake & Output: Intake & Output 10/16/18 10/17/18 10/17/18 21:59 05:59 13:59 Intake Total 725 700 350 Output Total 1999 Balance -8391 - - Weight 118.841 kg Intake: IV 50 Rocephin 2 gm In Dextrose 5% in 50 Water 50 ml @ 100 mls/hr IV Q24H [facility] Rx#:[id number] Oral 725 700 300 Output: Void Amount 1999 Other: Meal Breakfast Percent of Meal Consumed 100% Feeding Ability Independent Urine Appearance Clear Clear Urine Color Bright Yellow Pale Urine Odor Normal - Lab 10/17/18 07:27 10/16/18 04:00 Most recent lab results Calcium 8.4 mg/dl (8.6-10.4) L 10/16/18 04:00 Phosphorus 3.0 mg/dL (2.7-4.5) 10/15/18 03:30 Magnesium 1.8 mg/dL (1.6-2.5) 10/15/18 03:30 Microbiology 10/15/18 18:18 Throat Throat Culture - Final 10/14/18 16:15 Blood Blood Culture - Preliminary 10/14/18 16:27 Blood Blood Culture - Preliminary 10/15/18 18:18 Throat Group A Streptococcus Screen (OSCAR) - Final 10/14/18 22:09 Nose MRSA (PCR) - Final Medications Active Medications: Albuterol/Ipratropium (Duoneb) 3 ml NEB Q4HRT PRN PRN Reason: Bronchospasm Beclomethasone Dipropionate (Qvar 40) 1 puff INH BIDP PRN PRN Reason: Shortness Of Breath Bisacodyl (Dulcolax) 10 mg RI Q2-3DAYS PRN PRN Reason: Constipation Diphenhydramine HCl (Benadryl) 25 mg IV Q4-6HP PRN PRN Reason: nausea and insomnia Last Admin: 10/15/18 10:28 Dose: 25 mg Documented by: [email or web address] Famotidine (Pepcid) 20 mg IV Q12 [facility] Last Admin: 10/17/18 09:55 Dose: 20 mg Documented by: Admin: 10/16/18 21:25 Dose: 20 mg Documented by: Admin: 10/16/18 08:27 Dose: 20 mg Documented by: F Admin: 10/15/18 23:16 Dose: 20 mg Documented by: Admin: 10/15/18 08:56 Dose: 20 mg Documented by: [email or web address] Gabapentin (Neurontin) 900 mg PO QID@08,12,18,22 [facility] Last Admin: 10/17/18 07:53 Dose: 900 mg Documented by: Admin: 10/16/18 21:24 Dose: 900 mg Documented by: Admin: 10/16/18 18:06 Dose: 900 mg Documented by: [facility] Admin: 10/16/18 12:22 Dose: 900 mg Documented by: [facility] Admin: 10/16/18 09:27 Dose: 900 mg Documented by: [facility] Admin: 10/15/18 22:54 Dose: 900 mg Documented by: Admin: 10/15/18 19:18 Dose: 900 mg Documented by: Admin: 10/15/18 12:22 Dose: Not Given Documented by: [email or web address] Non-Admin Reason: NPO Admin: 10/15/18 08:23 Dose: Not Given Documented by: [email or web address] Non-Admin Reason: NPO Hydromorphone HCl (Dilaudid) 0.5 mg IV Q2HP PRN PRN Reason: PAIN LEVEL > 6 Last Admin: 10/17/18 09:56 Dose: 0.5 mg Documented by: [facility] Admin: 10/17/18 07:52 Dose: 0.5 mg Documented by: [facility] Admin: 10/17/18 04:04 Dose: 0.5 mg Documented by: Admin: 10/17/18 00:18 Dose: 0.5 mg Documented by: Admin: 10/16/18 21:24 Dose: 0.5 mg Documented by: Admin: 10/16/18 18:06 Dose: 0.5 mg Documented by: [facility] Admin: 10/16/18 16:11 Dose: 0.5 mg Documented by: [facility] Admin: 10/16/18 14:01 Dose: 0.5 mg Documented by: [facility] Admin: 10/16/18 11:26 Dose: 0.5 mg Documented by: [facility] Admin: 10/16/18 09:26 Dose: 0.5 mg Documented by: [facility] Admin: 10/16/18 07:19 Dose: 0.5 mg Documented by: [facility] Admin: 10/16/18 04:38 Dose: 0.5 mg Documented by: Admin: 10/16/18 02:27 Dose: 0.5 mg Documented by: Admin: 10/15/18 23:15 Dose: 0.5 mg Documented by: Admin: 10/15/18 19:06 Dose: 0.5 mg Documented by: Admin: 10/15/18 16:43 Dose: 0.5 mg Documented by: Admin: 10/15/18 14:39 Dose: 0.5 mg Documented by: Admin: 10/15/18 12:23 Dose: 0.5 mg Documented by: Admin: 10/15/18 10:01 Dose: 0.5 mg Documented by: [email or web address] Hydroxyzine HCl (Atarax) 25 mg PO HS [facility] Last Admin: 10/16/18 21:24 Dose: 25 mg Documented by: Admin: 10/15/18 22:54 Dose: 25 mg Documented by: ALEXA Ceftriaxone Sodium 2 gm/ (Dextrose) 50 mls @ 100 mls/hr IV Q24H [facility]; Protocol Last Infusion: 10/17/18 08:50 Dose: 0 mls/hr Documented by: Admin: 10/17/18 08:19 Dose: 100 mls/hr Documented by: Infusion: 10/16/18 09:10 Dose: 0 mls/hr Documented by: Admin: 10/16/18 08:36 Dose: 100 mls/hr Documented by: Infusion: 10/15/18 18:01 Dose: 0 mls/hr Documented by: Admin: 10/15/18 16:17 Dose: 100 mls/hr Documented by: MELY Methocarbamol (Robaxin) 750 mg IV Q6HP PRN PRN Reason: Muscle Spasm Last Admin: 10/17/18 07:52 Dose: 750 mg Documented by: Admin: 10/16/18 21:25 Dose: 750 mg Documented by: Admin: 10/16/18 07:18 Dose: 750 mg Documented by: Admin: 10/16/18 01:25 Dose: 750 mg Documented by: Admin: 10/15/18 14:20 Dose: 750 mg Documented by: Admin: 10/15/18 09:09 Dose: 750 mg Documented by: [email or web address] Metoclopramide HCl (Reglan) 5 mg IV Q6 [facility] Last Admin: 10/17/18 05:54 Dose: 5 mg Documented by: Admin: 10/16/18 23:19 Dose: 5 mg Documented by: Admin: 10/16/18 18:05 Dose: 5 mg Documented by: Admin: 10/16/18 12:21 Dose: 5 mg Documented by: Admin: 10/16/18 06:07 Dose: 5 mg Documented by: Admin: 10/15/18 23:16 Dose: 5 mg Documented by: Admin: 10/15/18 18:10 Dose: 5 mg Documented by: Admin: 10/15/18 12:24 Dose: 5 mg Documented by: [email or web address] Metronidazole (Flagyl) 500 mg PO Q8 [facility]; Protocol Last Admin: 10/17/18 05:54 Dose: 500 mg Documented by: Admin: 10/16/18 21:24 Dose: 500 mg Documented by: Admin: 10/16/18 14:01 Dose: 500 mg Documented by: TIANA Naloxone HCl (Narcan) 0.1 mg IV Q2MIN PRN PRN Reason: Opiate Reversal Ondansetron HCl (Zofran) 4 mg IV Q4-6HP PRN PRN Reason: Nausea And Vomiting Last Admin: 10/16/18 14:02 Dose: 4 mg Documented by: Admin: 10/16/18 08:28 Dose: 4 mg Documented by: Admin: 10/15/18 17:41 Dose: 4 mg Documented by: NAZANIN Quetiapine Fumarate (Seroquel) 50 - 150 mg PO HSP PRN PRN Reason: Insomnia Sodium Chloride (Saline Flush) 10 ml IV Q8 [facility] Last Admin: 10/17/18 05:54 Dose: 10 ml Documented by: Admin: 10/16/18 21:26 Dose: 10 ml Documented by: Admin: 10/16/18 14:02 Dose: Not Given Documented by: TIANA Non-Admin Reason: Bag Still Infusing Admin: 10/16/18 06:08 Dose: 10 ml Documented by: Admin: 10/15/18 23:18 Dose: 10 ml Documented by: Admin: 10/15/18 14:39 Dose: 10 ml Documented by: [email or web address] Tramadol HCl (Ultram) 50 - 100 mg PO DAILYP PRN PRN Reason: Pain Last Admin: 10/16/18 09:27 Dose: 100 mg Documented by: FMF Assessment and Plan - Narrative A/P Narrative: A: 1. Acute bilateral bacterial tonsillitis (Rt > Lt) with intra-tonsillar abscess (2 cm) without any evidence of peritonsillar extension, airway involvement - most likely due to Streptococci or Fusobacterium. No Hx of MRSA infection, nasal MRSA PCR at this adm neg - pt with no trismus, muffled voice. Responding clinically to antibiotic therapy. Transfer out of ICU today - qSOFA 0 at time of visit, was 1 at time of admission (RR >22). SOFA score 0. No evidence of life-threatening organ dysfunction - on day 4 of antibiotics 2. History of penicillin allergy: >10 years ago {pt mentions she was a baby and also in high school] Recommendations: - Stop IV Ceftriaxone - Start PO Cephalexin 500 mg qid - Continue PO Metronidazole 500 mg q8 hrs and PO Cephalexin 500 mg qid for another 7 days with stop date of 10/24/18 Bandar Morris MD Infectious diseases
== END 2018-10-17 13:30 | disposition home or self-care (01) | DRG 872 ==
LOC: ED 15:55 → ICU 21:50 → MEDSUR 10-15 16:34
PROVIDERS: ADMIT Internal Medicine; ATTEND Internal Medicine